=== PATIENT | female | born 1940 | race Caucasian/White ===

== ENCOUNTER → 2017-10-30 | Outpatient (CLI) | payer OTHER ==
[2017-10-30 15:41] LABS: BASO % 0.3 %; BASO ABS # 0.02 K/uL (0-0.2); EOS % 4.1 %; EOS ABS # 0.24 K/uL (0-0.5); HEMATOCRIT 36.8 % (37-47); HEMOGLOBIN 12.3 g/dL (12.0-16.0); IG# 0.01 K/uL (0.00-0.02); LYMPH % 33.5 %; LYMPH ABS # 1.94 K/uL (1.2-3.4); MEAN CELL VOLUME 88.5 fL (80-100); MEAN CORPUSCULAR HEMOGLOBIN 29.6 pg (25-34); MEAN CORPUSCULAR HGB CONC 33.4 g/dl (32-36); MEAN PLATELET VOLUME 10.2 fL (7.4-10.4); MONO % 9.7 %; MONO ABS # 0.56 K/uL (0.11-0.59); NEUT % 52.2 %; NEUT ABS # 3.02 K/uL (1.4-6.5); PLATELET COUNT 187 K/uL (130-400); RED CELL DISTRIBUTION WIDTH CV 13.3 % (11.5-14.5); RED CELL DISTRIBUTION WIDTH SD 43.3 fL (36.4-46.3); WHITE BLOOD COUNT 5.79 K/uL (4.8-10.8)
[2017-10-30 16:00] LABS: ALBUMIN 3.6 gm/dl (3.4-5.0); ALKALINE PHOSPHATASE 76 U/L (45-117); ALT/SGPT 22 U/L (12-78); AST/SGOT 19 U/L (15-37); BLOOD UREA NITROGEN 18 mg/dl (7-18); CALCIUM 9.1 mg/dl (8.5-10.1); CARBON DIOXIDE 28 mmol/L (21-32); CHOLESTEROL 152 mg/dl (0-200); CREATININE 0.95 mg/dl (0.60-1.20); GLUCOSE 90 mg/dl (70-99); LDL CHOLESTEROL CALCULATED 78 mg/dl; POTASSIUM 3.3 mmol/L (3.5-5.1); SODIUM 139 mmol/L (136-145); TOTAL PROTEIN 7.4 gm/dl (6.4-8.2)
== END | disposition home or self-care (01) ==
LOC: C.LAB1850 14:06
PROVIDERS: ATTEND Internal Medicine
DX: I10 Essential (primary) hypertension (principal); K14.9 Disease of tongue, unspecified; M81.0 Age-related osteoporosis without current pathological fracture

== ENCOUNTER 2024-10-21 10:29 | Inpatient (IN) ==
--- NOTE | 2024-10-21 11:10 | Emergency Department Note ---
Impression & Plan Back pain, Ambulatory dysfunction, Bradycardia, Compression fracture of lumbar vertebra ED Provider Note ED Provider Note NAME: EDGAR XIE AGE:84 SEX: Female : 1940 ARRIVES VIA: private vehicle INFORMANT: Patient ED PROVIDER(s): Carly Lux DO CHIEF COMPLAINT: Back pain, unable to walk HPI: This is an 84-year-old female who presents to the emergency department complaining of worsening low back pain and difficulty walking. Patient first began having back pain 2 years ago after an accidental fall. She states she seen many doctors in the interim and has been using [id number] medications and topical products to help with her pain. 2 weeks ago in discussion with her family doctor they wanted to try physical therapy. Since beginning physical therapy her pain has worsened. Her family doctor sent her for repeat x-rays and has referred her to orthopedics for possible steroid injections. They did not prescribe any additional medications. Pain is across the entire low back and radiates down bilateral legs. No recent incontinence, no saddle anesthesia, no recent lower extremity paresthesias. Family at bedside helped to interpret for the patient as Sammarinese is not her primary language. PAST MEDICAL HISTORY:See Below PAST SURGICAL HISTORY:See Below FAMILY HISTORY:See Below SOCIAL HISTORY:See Below HOME MEDICATIONS:See Below ALLERGIES:See Below VITALS:See Below PHYSICAL EXAMINATION: GENERAL: alert, uncomfortable appearing, well nourished, mild distress, non- toxic EYE EXAM: normal conjunctiva, PERRL and EOM's grossly intact OROPHARYNX: no exudate, no erythema, lips, buccal mucosa, and tongue normal and mucous membranes are moist NECK: supple, no nuchal rigidity, no adenopathy, non-tender LUNGS: Clear to auscultation. Normal chest wall mechanics, no w/r/r HEART: no murmurs, S1 normal and S2 normal ABDOMEN: abdomen soft, non-tender, normo-active bowel sounds, no masses, no rebound or guarding. BACK: Back is symmetrical on inspection and there is no deformity, no midline tenderness, no CVA tenderness.Pain with palpation across the lumbar spine b/l. SKIN: no rashes, petechiae, orbruising UPPER EXTREMITIES: upper extremities are grossly normal. FROM, nml pulses b/l. LOWER EXTREMITIES: No pitting edema. FROM, nml pulses b/l. 1/4 bilateral patellar reflexes. Pain with any attempts at straight leg raise bilaterally. Sensation intact bilaterally. NEURO EXAM: Normal sensorium, cranial nerves II-XII grossly intact, normal speech, no facial droop,nogross weakness of arms, no gross weakness of legs. Gross sensation intact. No ataxia. Vital Signs: reviewed and remarkable Differential Diagnosis: lumbar radiculopathy, muscle strain, fracture, cauda equina, mass, disc herniation, UTI, pyelonephritis, ureterolithiasis, AAA, referred pain from other intra-abdominal source, as well as others were considered MEDICAL DECISION MAKING: This is an 84-year-old female brought in by family due to concern for worsening low back pain. He states symptoms worsened 2 weeks ago when she began physical therapy. She does have a remote history of a fall and some mild ongoing back pain but has been ambulatory and relatively well-appearing until 2 weeks ago. She was afebrile and hemodynamically stable on arrival. After discussion and examination at bedside, labs are drawn and sent, IV established, the patient was monitored on telemetry. Patient sent for CT of the lumbar spine given advanced age and concern for pathology. An acute compression fracture was noted. Patient was given IV morphine, IV Tylenol, oral gabapentin, and oral Robaxin with some improvement. She was still not able to stand and ambulate to the bathroom. Given concern for ambulatory dysfunction and persistent pain with increased risk of falls at her advanced age, I discussed with the patient and daughter at bedside further inpatient evaluation and management. I was also concerned for persistent bradycardia. Daughter at bedside notes that she has been told she had a low heart rate before but the daughter is never seen a quite this low. It was also noted by nursing staff that she appeared intermittently irregular. While her EKG appeared to be a sinus bradycardia, I did review several telemetry strips that appeared to be either a slow atrial fibrillation or sinus bradycardia with sinus pauses. Given concern for possible need for cardiology evaluation additionally and further orthopedic/spine evaluation of her back, case was discussed with the hospitalist team for additional evaluation and management. Patient had no acute neurologic findings to suggest cauda equina. I do not suspect epidural abscess or hematoma. Patient's urinalysis and labs did not reveal an acute infectious etiology such as a urinary tract infection/pyelo contributing to her back pain. Consultation(s): 1630: Discussed with Dr. Chacon, [place] hospitalist, for additional evaluation and mgmt. ER Treatment Provided: See below Diagnostics Interpreted By Me: -ECG: sinus bradycardia at 44, left axis deviation, normal intervals, nonspecific ST/T wave changes -Cardiac Monitoring: An order was placed for continuous cardiac monitoring. The monitor shows a rate of 48 with sinus bradycardia rhythm. -Laboratory studies: As stated above and show below. -Imaging studies: Ct lumbar spine: compression fx Triage Nursing Note Reviewed Prior/Outside Records Reviewed - PCP office note from last week reviewed Past Med/Surg History Problem List (Updated 10/21/24 @ 17:55 by Carly Lux, ) Compression fracture of lumbar vertebra (Acute) Bradycardia (Acute) Ambulatory dysfunction (Acute) Back pain (Acute) SI joint arthritis Hip pain, bilateral Impacted cerumen of both ears Tinnitus, right ear Sensorineural hearing loss, bilateral Vitamin D deficiency Hyperglycemia Right leg pain Right leg swelling Decreased hearing of both ears Anxiety GERD (gastroesophageal reflux disease) Chronic UTI Low back pain Hypertension Hyperlipidemia Health care maintenance Medical History Low serum potassium Surgical History No history of previous surgery Family History Denies family history of Ovarian cancer Prostate cancer Myocardial infarction Breast cancer Colorectal cancer Social History Smoking Status: Never smoker Preferred Language: Sammarinese Communication Ability Comment: farsi- daughter translate Communication Tools: Other Visual Impairment: No Limitations Hearing Ability: Normal Feels Safe at Home: Yes Seatbelt Use: always Allergies Allergies Allergy/AdvReac Type Severity Reaction Status Date / Time CT DYE Allergy Unknown HIVES Uncoded 10/14/24 15:05 Home Meds Home Medications Medication Instructions Recorded Confirmed metoprolol tartrate 50 mg tablet 0 mg PO BID 10/21/24 10/21/24 Previous Rx's Medication Instructions Recorded atorvastatin 20 mg tablet 20 mg PO DAILY #90 tabs 10/04/23 hydrochlorothiazide 50 mg tablet 50 mg PO DAILY #90 tabs 10/04/23 omeprazole 40 mg capsule,delayed 40 mg PO DAILY #90 caps 10/04/23 release escitalopram oxalate 10 mg tablet 10 mg PO DAILY #90 tabs 07/04/24 losartan 50 mg tablet 50 mg PO DAILY #90 tabs 07/04/24 metoprolol succinate 25 mg 25 mg PO DAILY #90 tabs 09/10/24 tablet,extended release 24 hr Results & Data (ED) Vital Signs Vital Signs - 24 hr 10/21/24 10:36 10/21/24 11:46 10/21/24 12:19 Temperature 36.6 C Temperature Source Temporal Artery Scan Pulse Rate 67 63 Pulse Rate [Apical] Pulse Rhythm [Apical] Pulse Strength [Apical] Respiratory Rate 18 Respiratory Effort / Characteristics Non-Labored Spontaneous Respiratory Depth Normal Respiratory Pattern Regular Blood Pressure 152/87 H Blood Pressure [Left Arm] Blood Pressure Mean 108 Blood Pressure Mean [Left Arm] Blood Pressure Position [Left Arm] Pulse Oximetry 99 87 L Oxygen Delivery Method Room Air Room Air Nasal Cannula Oxygen Flow Rate 0 Sepsis Recent Fever Within 48 Hours No Sepsis New/Unexplained Change in Mental Status No Sepsis Action Taken by Nursing No Action Required Oxygen Flow Rate - Titration 2 Pulse Oximetry Post Tiitration 94 10/21/24 12:30 10/21/24 15:00 10/21/24 16:28 Temperature Temperature Source Pulse Rate Pulse Rate [Apical] 54 L 49 L 49 L Pulse Rhythm [Apical] Regular Pulse Strength [Apical] Normal Respiratory Rate 20 20 Respiratory Effort / Characteristics Non-Labored Spontaneous Respiratory Depth Normal Respiratory Pattern Regular Blood Pressure Blood Pressure [Left Arm] 161/97 H 143/92 H 141/63 H Blood Pressure Mean Blood Pressure Mean [Left Arm] 118 109 89 Blood Pressure Position [Left Arm] Lying Lying Pulse Oximetry 98 100 95 Oxygen Delivery Method Nasal Cannula Room Air Oxygen Flow Rate 2 Sepsis Recent Fever Within 48 Hours Sepsis New/Unexplained Change in Mental Status Sepsis Action Taken by Nursing Oxygen Flow Rate - Titration Pulse Oximetry Post Tiitration Laboratory Data 10/21/24 11:11 10/21/24 11:11 Lab Results 10/21/24 Range/Units 11:11 WBC 5.88 (4.8-10.8) K/ul RBC 4.32 (4.20-5.40) M/uL Hgb 13.0 (12.0-16.0) g/dl Hct 37.1 (37.0-47.0) % MCV 85.9 (80.0-100.0) fL MCH 30.1 (25.0-34.0) pg MCHC 35.0 (32.0-36.0) g/dL RDW Std Deviation 39.8 (36.4-46.3) fL RDW Coeff of Abelardo 12.7 (11.5-14.5) % Plt Count 265 (130-400) K/uL MPV 9.7 (9.4-12.4) fL Immature Gran % (Auto) 0.3 % Neut % (Auto) 58.7 % Lymph % (Auto) 30.8 % Pettis % (Auto) 7.3 % Eos % (Auto) 2.4 % Baso % (Auto) 0.5 % Neut # (Auto) 3.45 (1.40-6.50) K/uL Lymph # (Auto) 1.81 (1.20-3.40) K/uL Pettis # (Auto) 0.43 (0.11-0.59) K/uL Eos # (Auto) 0.14 (0.00-0.50) K/uL Baso # (Auto) 0.03 (0.00-0.20) K/uL Immature Gran # (Auto) 0.02 (0.01-0.20) K/uL PT 11.0 (9.0-12.0) Seconds INR 1.0 (0.9-1.1) Sodium 138 (136-145) mmol/L Potassium 3.6 (3.5-5.1) mmol/L Chloride 100 (98-107) mmol/L Carbon Dioxide 28 (21-32) mmol/L Anion Gap 10 (3-11) BUN 18 (6-23) mg/dl Creatinine 1.07 (0.6-1.2) mg/dl Est Cr Clr Drug Dosing 38.4 ml/min eGFR 50.59 BUN/Creatinine Ratio 16.8 (10-20) Glucose 101 H (70-99(Fasting)) mg/dl Calcium 10.2 (8.6-10.3) mg/dl Magnesium 1.4 L (1.7-2.4) mg/dl Total Bilirubin 0.7 (0.2-1.0) mg/dl AST 20 (13-39) U/L ALT 15 (7-52) U/L Alkaline Phosphatase 136 H (34-104) U/L Total Protein 7.5 (6.0-8.3) gm/dl Albumin 4.2 (3.4-5.0) gm/dl Globulin 3.3 (2.5-4.0) gm/dl Albumin/Globulin Ratio 1.3 (0.9-2) Lipase 53 (11-82) U/L Urine Color Yellow Urine Appearance Clear (Clear) Urine pH 8.5 H (4.5-7.5) Ur Specific [place] 1.015 (1.000-1.030) Urine Protein Negative (Negative) Urine Glucose (UA) Negative (Negative) Urine Ketones Negative (Negative) Urine Blood Trace-intact H (Negative) Urine Nitrite Negative (Negative) Urine Bilirubin Negative (Negative) Urine Urobilinogen Negative (Negative) Ur Leukocyte Esterase Negative (Negative) Urine RBC 0-2 (0-2) /hpf Urine WBC 0-5 (0-5) /hpf Ur Epithelial Cells 0-2 (0-2) /hpf Urine Bacteria None Seen (None Seen) Urine Comment Administered Medications Sodium Chloride (Nss) 1,000 mls @ 125 mls/hr IV .Q8H LAVERNE Stop: 10/24/24 11:44 Last Admin: 10/21/24 11:34 Dose: 125 mls/hr Documented By: SHOBHA Discontinued Medications Gabapentin (Gabapentin 100 Mg Cap) 100 mg PO NOW STA Stop: 10/21/24 13:46 Last Admin: 10/21/24 13:57 Dose: 100 mg Documented By: BRANT Acetaminophen (Ofirmev) 1,000 mg in 100 mls @ 400 mls/hr IV NOW STA Stop: 10/21/24 11:18 Last Infusion: 10/21/24 12:29 Dose: Infused Documented By: Admin: 10/21/24 11:27 Dose: 400 mls/hr Documented By: SHOBHA Magnesium Sulfate/Dextrose (Magnesium Sulfate / D5w) 1 gm in 100 mls @ 100 mls/hr IV Q1H LAVERNE Stop: 10/21/24 14:04 Last Infusion: 10/21/24 14:15 Dose: Infused Documented By: Admin: 10/21/24 13:15 Dose: 100 mls/hr Documented By: Infusion: 10/21/24 13:09 Dose: Infused Documented By: Admin: 10/21/24 12:09 Dose: 100 mls/hr Documented By: SHOBHA Methocarbamol (Methocarbamol 500 Mg Tablet) 500 mg PO NOW STA Stop: 10/21/24 11:05 Last Admin: 10/21/24 11:35 Dose: 500 mg Documented By: SHOBHA Morphine Sulfate (Morphine Sulfate 4 Mg/Ml 1 Ml Carp\Vial) 4 mg IV NOW STA Stop: 10/21/24 11:05 Last Admin: 10/21/24 11:27 Dose: 4 mg Documented By: SHOBHA Ondansetron HCl (Ondansetron Inj 2 Mg/Ml 2 Ml Vial) 4 mg IV NOW STA Stop: 10/21/24 11:05 Last Admin: 10/21/24 11:27 Dose: 4 mg Documented By: SHOBHA Imaging Data Radiologist's Impression: Lumbar Spine CT 10/21/24 11:04 CT SCAN OF THE LUMBAR SPINE WITHOUT IV CONTRAST CLINICAL HISTORY: Low back pain COMPARISON STUDY: No priors TECHNIQUE: CT scan of the lumbar spine is performed from the lower thoracic spine to sacrum. Images are reviewed in the axial, sagittal, and coronal planes. IV contrast was not administered for this examination. A dose lowering technique was utilized adhering to the principles of ALARA. CT DOSE: 934.66 mGy.cm FINDINGS: The skeletal structures are osteopenic. There is an acute appearing superior endplate compression fracture of L3 with mild loss of height. Paravertebral edema seen at this level. No retropulsion of fragments is identified. No additional acute fracture is suspected. Vertebral body height is otherwise maintained. 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 Alignment is otherwise preserved. The transverse and spinous processes appear intact. No lytic or blastic lesion is seen. There are Schmorl's nodes within the inferior end plates of T12, L1, and L3. Anterior and lateral marginal osteophytes are seen throughout. There is moderate disc space narrowing at L5-S1. Only mild disc space narrowing is seen at the remaining lumbar levels. Posterior disc osteophyte complexes are seen at several levels. There is at least moderate central canal stenosis at L2-L3 and L3-L4. Imaged portions of the sacrum and bony pelvis appear intact. There is fatty atrophy of the paraspinous musculature. Moderate atherosclerotic calcification is noted in the abdominal aorta. No retroperitoneal lymphadenopathy is seen. IMPRESSION: 1. Acute appearing superior endplate compression fracture of L3 with mild loss of height as detailed above. No retropulsion of fragments is seen. 2. No additional findings are suspicious for acute fracture. 3. Osteopenia and spondylotic change as above. ACT 112: Negative or not required by law. Electronically signed by: Louie Phillips M.D. 10/21/2024 12:07 PM Discharge Plan Visit Data Chief Complaint: Back Injury/Pain Stated Complaint: SEVERE LOWER BACK PAIN ED Provider: Carly Lux Discharge Problem: Back pain, Ambulatory dysfunction, Bradycardia, Compression fracture of lumbar vertebra Patient Disposition: Being Evaluated by Hospitalist Condition: Fair Forms Stand Alone Forms: My [facility] Prescriptions Prescriptions: No Action atorvastatin 20 mg tablet 20 mg PO DAILY Qty: 90 3RF hydrochlorothiazide 50 mg tablet 50 mg PO DAILY Qty: 90 3RF omeprazole 40 mg capsule,delayed release(DR/EC) 40 mg PO DAILY Qty: 90 3RF escitalopram oxalate 10 mg tablet 10 mg PO DAILY Qty: 90 3RF losartan 50 mg tablet 50 mg PO DAILY Qty: 90 1RF metoprolol succinate 25 mg tablet extended release 24 hr 25 mg PO DAILY Qty: 90 3RF metoprolol tartrate 50 mg tablet 0 mg PO BID Patient Comments: 10/21-last filled 02/06/24 90 day supply #180 Referrals Referrals: Loly Levi MD [Primary Care Provider] -
[2024-10-21] MEDS: ONDANSETRON INJ 2 MG/ML 2 ML VIAL IV STA (11:27)
[2024-10-21] MEDS: MoRPHine SULFATE 4 MG/ML 1 ML CARP\\VIAL IV STA (11:27)
[2024-10-21] MEDS: ACETAMINOPHEN 1,000 MG/100 ML VIAL IV STA (11:27)
[2024-10-21] MEDS: SODIUM CHLORIDE 0.9% 1,000 ML IV SCH (11:34)
[2024-10-21] MEDS: METHOCARBAMOL 500 MG TABLET PO STA (11:35)
[2024-10-21 11:38] LABS: Appearance Urine Clear (Clear); Glucose Urine UA Negative (Negative)
[2024-10-21 11:44] LABS: Hematocrit (blood only) 37.1 % (37.0-47.0); Hemoglobin 13.0 g/dl (12.0-16.0); Immature Granulocytes # (auto) 0.02 K/uL (0.01-0.20); Immature Granulocytes % (auto) 0.3 %; Mean Corpuscular Hemoglobin 30.1 pg (25.0-34.0); Mean Corpuscular Volume 85.9 fL (80.0-100.0); Platelet Count 265 K/uL (130-400); RDW Standard Deviation 39.8 fL (36.4-46.3); Red Blood Count 4.32 M/uL (4.20-5.40); White Blood Count 5.88 K/ul (4.8-10.8)
[2024-10-21 11:52] LABS: Epithelial Cell Urine 0-2 /hpf (0-2)
[2024-10-21 12:03] LABS: Alanine Aminotransferase 15.0 U/L (7-52); Albumin Globulin Ratio 1.3 (0.9-2); Alkaline Phosphatase 136.0 U/L (34-104); Anion Gap 10.0 (3-11); Bilirubin,Total 0.7 mg/dl (0.2-1.0); Blood Urea Nitrogen 18.0 mg/dl (6-23); Calcium 10.2 mg/dl (8.6-10.3); Carbon Dioxide 28.0 mmol/L (21-32); Chloride 100.0 mmol/L (98-107); Creatinine Clr Calc Pharmacy 38.4 ml/min; Globulin 3.3 gm/dl (2.5-4.0); Glucose 101.0 mg/dl (70-99(Fasting)); Lipase 53.0 U/L (11-82); Magnesium 1.4 mg/dl (1.7-2.4); Potassium 3.6 mmol/L (3.5-5.1); Sodium 138.0 mmol/L (136-145); Total Protein 7.5 gm/dl (6.0-8.3)
--- NOTE | 2024-10-21 12:08 | CT Scan Report ---
CT SCAN OF THE LUMBAR SPINE WITHOUT IV CONTRAST CLINICAL HISTORY: Low back pain COMPARISON STUDY: No priors TECHNIQUE: CT scan of the lumbar spine is performed from the lower thoracic spine to sacrum. Images are reviewed in the axial, sagittal, and coronal planes. IV contrast was not administered for this ex amination. A dose lowering technique was utilized adhering to the principles of ALARA. CT DOSE: 934.66 mGy.cm FINDINGS: The skeletal structures are osteopenic. There is an acute appearing superior endplate compr ession fracture of L3 with mild loss of height. Paravertebral edema seen at this level. No retropulsi on of fragments is identified. No additional acute fracture is suspected. Vertebral body height is ot herwise maintained. 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 Al ignment is otherwise preserved. The transverse and spinous processes appear intact. No lytic or blast ic lesion is seen. There are Schmorl's nodes within the inferior end plates of T12, L1, and L3. Anter ior and lateral marginal osteophytes are seen throughout. There is moderate disc space narrowing at L 5-S1. Only mild disc space narrowing is seen at the remaining lumbar levels. Posterior disc osteophyt e complexes are seen at several levels. There is at least moderate central canal stenosis at L2-L3 an d L3-L4. Imaged portions of the sacrum and bony pelvis appear intact. There is fatty atrophy of the p araspinous musculature. Moderate atherosclerotic calcification is noted in the abdominal aorta. No re troperitoneal lymphadenopathy is seen. IMPRESSION: 1. Acute appearing superior endplate compression fracture of L3 with mild loss of height as detailed above. No retropulsion of fragments is seen. 2. No additional findings are suspicious for acute fracture. 3. Osteopenia and spondylotic change as above. ACT 112: Negative or not required by law. Electronically signed by: Louie Phillips M.D. 10/21/2024 12:07 PM
[2024-10-21] MEDS: MAGNESIUM SULFATE / D5W 1 GM/100 ML BAG IV SCH (12:09)
[2024-10-21 12:15] LABS: INR 1.0 (0.9-1.1); Prothrombin Time 11.0 Seconds (9.0-12.0)
[2024-10-21] MEDS: GABAPENTIN 100 MG CAP PO STA (13:57)
[2024-10-21] MEDS ORDERED: MoRPHine SULFATE 4 MG/ML 1 ML CARP\\VIAL IV PRN (16:07)
[2024-10-21] MEDS ORDERED: METHOCARBAMOL 500 MG TABLET PO PRN (16:07)
[2024-10-21] MEDS ORDERED: ONDANSETRON INJ 2 MG/ML 2 ML VIAL IV PRN (16:11)
--- NOTE | 2024-10-21 16:39 | History & Physical Report ---
Date of Service October 21, 2024 Assessment & Plan (1) Back pain: Plan: -L3 compression fx on CT -pain control with morphine -neurontin, robaxin -MRI L-spine -ortho-spine consulted -PT/OT evaluation (2) Hypertension: Plan: -losartan -HCTZ -metoprolol (3) Hyperlipidemia: Plan: -atorvastatin (4) Anxiety: Plan: -lexapro Plan Heparin SQ for DVT px History of Present Illness Chief Complaint: Lower back pain Primary Care Provider: Loly Levi MD Pt is an 84 y/o female from [place] with pmh of HTN, HLD, anxiety, who presents worsening lower back pain with pain that radiates down her legs and difficulty walking. Pt started having back pain 2 years ago after a fall. She was placed in PT by her primary care doctor 2 weeks ago and her symptoms have progressed. She was sent in by her PMD for further imaging and orthopedics evaluation. Pt has no urinary incontinence or paresthesias. She had CT L spine which showed L3 compression fracture. Pt was given morphine, gabapentin and Robaxin. Allergies Allergy/AdvReac Type Severity Reaction Status Date / Time CT DYE Allergy Unknown HIVES Uncoded 10/14/24 15:05 Home Medications Medication Instructions Recorded Confirmed Type atorvastatin 20 mg tablet 20 mg PO DAILY #90 tabs 10/04/23 10/21/24 Rx hydrochlorothiazide 50 mg tablet 50 mg PO DAILY #90 tabs 10/04/23 10/21/24 Rx omeprazole 40 mg capsule,delayed 40 mg PO DAILY #90 caps 10/04/23 10/21/24 Rx release escitalopram oxalate 10 mg tablet 10 mg PO DAILY #90 tabs 07/04/24 10/21/24 Rx losartan 50 mg tablet 50 mg PO DAILY #90 tabs 07/04/24 10/21/24 Rx metoprolol succinate 25 mg 25 mg PO DAILY #90 tabs 09/10/24 10/21/24 Rx tablet,extended release 24 hr metoprolol tartrate 50 mg tablet 0 mg PO BID 10/21/24 10/21/24 History Past Med/Surg History Problem List (Updated 10/21/24 @ 16:30 by Carly Lux DO) Bradycardia (Acute) Ambulatory dysfunction (Acute) Back pain (Acute) SI joint arthritis Hip pain, bilateral Impacted cerumen of both ears Tinnitus, right ear Sensorineural hearing loss, bilateral Vitamin D deficiency Hyperglycemia Right leg pain Right leg swelling Decreased hearing of both ears Anxiety GERD (gastroesophageal reflux disease) Chronic UTI Low back pain Hypertension Hyperlipidemia Health care maintenance Medical History Low serum potassium Surgical History No history of previous surgery Family History Denies family history of Ovarian cancer Prostate cancer Myocardial infarction Breast cancer Colorectal cancer Social History Smoking Status: Never smoker Preferred Language: Romansh Communication Ability Comment: farsi- daughter translate Communication Tools: Other Visual Impairment: No Limitations Hearing Ability: Normal Feels Safe at Home: Yes Seatbelt Use: always Review of Systems Review of Systems: CONST: Negative for fever, body aches and chills. HENT: Negative for neck pain/stiffness, headache, congestion, sore throat, swelling. EYES: Negative for discharge/pain or vision changes. RESP: Negative for cough/hemoptysis and shortness of breath. CV: Negative chest pain, difficulty breathing, palpitations. ABD: Negative pain, nausea, vomiting. : Negative increase frequency, dysuria, blood in urine or stool. MUSC: Lumbar back pain SKIN: Negative rash, lesions/sores. NEURO: Negative headache, dizziness, weakness. Physical Exam Physical Exam: GENERAL APPEARANCE NAD, activity normal for age, well developed/ well nourished, no cyanosis, pallor, or diaphoresis. EYES lids/conjunctiva normal. EARS/NOSE/THROAT Mucous membranes moist, nares normal, lips/teeth normal uvula midline without oral pharyngeal erythema, exudat e or swelling TMs normal bilaterally. No lymphangitis/lymphedema. HEAD/NECK normocephalic atraumatic, no facial trauma, neck is supple. RESPIRATORY respiratory effort normal, speaks in full sentences, no tripod position, no accessory muscle use. Lungs clear to auscultation without rhonchi, wheezes, rales CARDIAC Regular rate and rhythm, no edema. ABDOMINAL Soft, ND/NT. No evidence of fluid wave. No pulsatile masses on exam, rebound tenderness, Jackson sign or pain over Mcburney's point. MUSCLES/EXTREMITIES Lumbar tenderness SKIN Warm, pink and dry. No rashes, dermatoses, petechiae or lesions. NEUROLOGICAL Speech is clear and appropriate. Normal level of consciousness. Gait and coordination are normal. 5/5 strength in all extremities. PSYCH Normal mood and affect. Judgement/competence is appropriate Results & Data Results & Data Vital Signs (Past 12 Hours) Vital Signs Temp Pulse Pulse Resp BP BP Pulse Ox 10/21/24 16:28 49 L 20 141/63 H 95 10/21/24 15:00 49 L 143/92 H 100 10/21/24 12:30 54 L 20 161/97 H 98 10/21/24 12:19 87 L 10/21/24 11:46 63 10/21/24 10:36 36.6 C 67 18 152/87 H 99 O2 Del Method O2 Flow Rate 10/21/24 16:28 10/21/24 15:00 Room Air 10/21/24 12:30 Nasal Cannula 2 10/21/24 12:19 Room Air, Nasal Cannula 0 10/21/24 11:46 10/21/24 10:36 Room Air PG Care Time/CCT Total # of Minutes Spent Total Time Spent with Patient: Total time spent is greater than 50% in coordination of care (as documented) at patient's floor/unit and/or counseling patient: Coding Level of Care Code 95810 INT INP/OBS CARE 2/55MIN Diagnoses Back pain M54.9 Hypertension I10 Hyperlipidemia E78.5 Anxiety F41.9
--- NOTE | 2024-10-21 20:19 | Magnetic Resonance Report ---
MRI of the lumbar spine without contrast Technique: Noncontrast axial images of the lumbar spine. Multiplanar multisequence MRI images of the lumbar spine No comparison Findings: Subtle superior endplate compression deformity of L3 resulting in 10% vertebral body height loss. There is slight retropulsion of the fracture fragment. This is superimposed upon significant posterior disc bulge and facet ligamentous hypertrophic changes at L2-L3 resulting in moderate canal and severe bilateral foraminal narrowing at this level The cord terminates normally at L1 Facet and ligamentous hypertrophic changes superimposed upon posterior disc bulge at L3-L4 resulting in moderate bilateral foraminal narrowing Grade 1 anterolisthesis of L5 on S1 resulting in unroofing of the disc posteriorly with severe bilateral foraminal narrowing Impression: Subtle superior endplate compression deformity at L3 resulting in 10% vertebral body height loss. There is slight retropulsion of the fracture fragment and there is severe canal stenosis secondary to the retropulsed fracture fragment and superimposed degenerative changes at L2-L3. Severe bilateral foraminal narrowing is also noted at this level Degenerative changes at L3-L4 and L5-S1 as described above Electronically signed by Darwin Khan 10-21-2024 8:19 PM
[2024-10-21] MEDS: HEPARIN SOD 5,000 UNIT/0.5 ML VIAL SQ SCH (21:53)
[2024-10-21] MEDS: GABAPENTIN 100 MG CAP PO SCH (21:53)
[2024-10-21] MEDS: LOSARTAN POTASSIUM 50 MG TAB PO SCH (22:34)
[2024-10-21] MEDS: ESCITALOPRAM OXALATE 10 MG TAB PO SCH (22:35)
[2024-10-21] MEDS: ATORVASTATIN 20 MG TAB PO SCH (22:35)
[2024-10-22] MEDS: ACETAMINOPHEN 325 MG TAB PO PRN (04:09)
[2024-10-22 06:33] LABS: Hematocrit (blood only) 30.3 % (37.0-47.0); Hemoglobin 10.3 g/dl (12.0-16.0); Mean Corpuscular Hemoglobin 30.3 pg (25.0-34.0); Mean Corpuscular Volume 89.1 fL (80.0-100.0); Platelet Count 202 K/uL (130-400); RDW Standard Deviation 43.3 fL (36.4-46.3); Red Blood Count 3.40 M/uL (4.20-5.40); White Blood Count 5.55 K/ul (4.8-10.8)
[2024-10-22 06:48] LABS: Anion Gap 6.0 (3-11); Blood Urea Nitrogen 18.0 mg/dl (6-23); Calcium 8.3 mg/dl (8.6-10.3); Carbon Dioxide 26.0 mmol/L (21-32); Chloride 106.0 mmol/L (98-107); Creatinine Clr Calc Pharmacy 30.2 ml/min; Glucose 94.0 mg/dl (70-99(Fasting)); Potassium 3.4 mmol/L (3.5-5.1); Sodium 138.0 mmol/L (136-145)
--- NOTE | 2024-10-22 08:53 | Hospitalist Progress Note ---
Date of Service October 22, 2024 Assessment & Plan (1) Back pain: Plan: -L3 compression fx on CT -pain control with morphine and tramadol -neurontin, robaxin -MRI L-spine -ortho-spine consulted -PT/OT evaluation (2) Hypertension: Plan: -losartan -HCTZ -metoprolol (3) Hyperlipidemia: Plan: -atorvastatin (4) Anxiety: Plan: -lexapro Plan Heparin SQ for DVT px Admission and Anticipated Discharge Date Admission Date: October 21, 2024 Subjective Pt appears to have improved symptoms of back pain. Review of Systems Review of Systems: CONST: Negative for fever, body aches and chills. HENT: Negative for neck pain/stiffness, headache, congestion, sore throat, swelling. EYES: Negative for discharge/pain or vision changes. RESP: Negative for cough/hemoptysis and shortness of breath. CV: Negative chest pain, difficulty breathing, palpitations. ABD: Negative pain, nausea, vomiting. : Negative increase frequency, dysuria, blood in urine or stool. MUSC: Lumbar back pain SKIN: Negative rash, lesions/sores. NEURO: Negative headache, dizziness, weakness. Physical Exam Physical Exam: GENERAL APPEARANCE NAD, activity normal for age, well developed/ well nourished, no cyanosis, pallor, or diaphoresis. EYES lids/conjunctiva normal. EARS/NOSE/THROAT Mucous membranes moist, nares normal, lips/teeth normal uvula midline without oral pharyngeal erythema, exudate or swelling TMs normal bilaterally. No lymphangitis/lymphedema. HEAD/NECK normocephalic atraumatic, no facial trauma, neck is supple. RESPIRATORY respiratory effort normal, speaks in full sentences, no tripod position, no accessory muscle use. Lungs clear to auscultation without rhonchi, wheezes, rales CARDIAC Regular rate and rhythm, no edema. ABDOMINAL Soft, ND/NT. No evidence of fluid wave. No pulsatile masses on exam, rebound tenderness, Jackson sign or pain over Mcburney's point. MUSCLES/EXTREMITIES Lumbar tenderness SKIN Warm, pink and dry. No rashes, dermatoses, petechiae or lesions. NEUROLOGICAL Speech is clear and appropriate. Normal level of consciousness. Gait and coordination are normal. 5/5 strength in all extremities. PSYCH Normal mood and affect. Judgement/competence is appropriate Results & Data Results & Data Vital Signs (Past 12 Hours) Vital Signs Temp Pulse Pulse Resp BP BP Pulse Ox 10/22/24 07:10 36.4 C L 54 L 16 125/76 10/22/24 00:16 60 110/70 10/21/24 23:01 36.6 C 62 18 99/64 L 95 O2 Del Method 10/22/24 07:10 10/22/24 00:16 10/21/24 23:01 Room Air PG Care Time/CCT Total # of Minutes Spent Total Time Spent with Patient: Total time spent is greater than 50% in coordination of care (as documented) at patient's floor/unit and/or counseling patient: Coding Level of Care Code 25036 SUB INP/OBS CARE 2/35MIN Diagnoses Back pain M54.9 Hypertension I10 Hyperlipidemia E78.5 Anxiety F41.9
[2024-10-22] MEDS ORDERED: LOSARTAN POTASSIUM 50 MG TAB PO SCH (09:00)
[2024-10-22] MEDS ORDERED: ATORVASTATIN 20 MG TAB PO SCH (09:00)
[2024-10-22] MEDS ORDERED: ESCITALOPRAM OXALATE 10 MG TAB PO SCH (09:00)
[2024-10-22] MEDS: METOPROLOL SUCC 25MG EXT REL TAB PO SCH (10:02)
[2024-10-22] MEDS: hydroCHLOROthiazide 25 MG TAB PO SCH (10:02)
--- NOTE | 2024-10-22 11:05 | Orthopedic Consultation ---
Date of Service October 22, 2024 Assessment & Plan (1) Compression fracture of lumbar vertebra: * Case/imaging reviewed and discussed with Dr Beckwith * Recommend conservative management of L3 compression fracture * Per report, no recent trauma and fracture was not present on imaging after last known fall approximately 2 years ago * LSO brace ordered * Activity as tolerated * Pain improved on Neurontin and Robaxin. * Consider steroid taper if not improved * Discussed possible surgical intervention, however this is not urgent given her exam findings * Disposition: TBD * Daily treatment: Physical Therapy/ Occupational Therapy per protocol * Weight bearing status: WBAT * Pain control * Remainder care per primary team * No objection to discharge with outpatient follow-up as symptoms improved and she clears PT/OT History of Present Illness Reason for Consultation: L3 compression fx Requesting Physician: . Attending Physician: Bay Chacon MD .Patient is a 84 y/o female with low back pain. 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 PMH including anxiety, GERD, HTN, hyperlipidemia, chronic back pain. Presents to hospital with acute on chronic low back pain. Per patient's daughter, patient has had low back pain for approximately 2 years after a fall, imaging at that time was negative for fracture. Recently started PT for generalized conditioning which has increased her low back pain, became severe yesterday prompting presentation to ED for further evaluation. Current workup including CT and MRI lumbar spine demonstrating L3 compression fracture with retropulsion and canal stenosis secondary to retropulsed fragment and degenerative changes. Admitted to hospital medicine team for pain control and ambulatory dysfunction. Orthopedics consulted for management recommendations. At time of exam patient sitting on edge of bed about to work with PT, no acute distress. Indicates pain centralized to the low back. Actively moves both lower extremities without limitation. Per report has been ambulating throughout the room without signif icant difficulty throughout the morning. Pain is improved overnight with medication. Denies current tingling, numbness, weakness of the lower extremities, just pain with motion. Allergies Allergy/AdvReac Type Severity Reaction Status Date / Time CT DYE Allergy Unknown HIVES Uncoded 10/14/24 15:05 Home Medications Medication Instructions Recorded Confirmed Type atorvastatin 20 mg tablet 20 mg PO DAILY #90 tabs 10/04/23 10/21/24 Rx hydrochlorothiazide 50 mg tablet 50 mg PO DAILY #90 tabs 10/04/23 10/21/24 Rx omeprazole 40 mg capsule,delayed 40 mg PO DAILY #90 caps 10/04/23 10/21/24 Rx release escitalopram oxalate 10 mg tablet 10 mg PO DAILY #90 tabs 07/04/24 10/21/24 Rx losartan 50 mg tablet 50 mg PO DAILY #90 tabs 07/04/24 10/21/24 Rx metoprolol succinate 25 mg 25 mg PO DAILY #90 tabs 09/10/24 10/21/24 Rx tablet,extended release 24 hr metoprolol tartrate 50 mg tablet 0 mg PO BID 10/21/24 10/21/24 History Past Med/Surg History Problem List (Updated 10/22/24 @ 14:51 by Louie Beckwith MD) Compression fracture of lumbar vertebra (Acute) Bradycardia (Acute) Ambulatory dysfunction (Acute) Back pain (Acute) SI joint arthritis Hip pain, bilateral Impacted cerumen of both ears Tinnitus, right ear Sensorineural hearing loss, bilateral Vitamin D deficiency Hyperglycemia Right leg pain Right leg swelling Decreased hearing of both ears Anxiety GERD (gastroesophageal reflux disease) Chronic UTI Low back pain Hypertension Hyperlipidemia Health care maintenance Medical History Low serum potassium Surgical History No history of previous surgery Family History Denies family history of Ovarian cancer Prostate cancer Myocardial infarction Breast cancer Colorectal cancer Social History Smoking Status: Never smoker Second Hand Exposure: No; Do You Dip or Chew Tobacco: No; Hx Alcohol Use: No Hx Substance Use: No Preferred Language: [place]ic Communication Ability: Effective Communication Ability Comment: farsi- daughter translate Communication Tools: IPad Visual Impairment: No Limitations Hearing Ability: Normal 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 Physical Exam * General: Alert and oriented, no acute distress * Constitutional: well-developed, well-nourished. * Respiratory: Normal respiratory effort, no distress * Gastrointestinal: No tenderness to palpation, no rigidity or guarding. * Skin: No rash or lesion. * Neurologic: Grossly normal * Musculoskeletal: Lumbar spine region without obvious deformity or overlying skin changes. Minimal tenderness of midline lumbar region and paraspinals, otherwise no tenderness b/l buttock or LE. Lumbar flexion/extension and rotation ROM with minimal pain. AROM b/l hip flexion, knee flexion/extension, ankle flexion/extension intact. Strength 5/5 bilaterally. Sensation intact plantar/dorsal foot. Brisk capillary refill. Results & Data Results & Data Laboratory Results . Diagnostic Findings . Lumbar Spine CT 10/21/24 11:04 CT SCAN OF THE LUMBAR SPINE WITHOUT IV CONTRAST CLINICAL HISTORY: Low back pain COMPARISON STUDY: No priors TECHNIQUE: CT scan of the lumbar spine is performed from the lower thoracic spine to sacrum. Images are reviewed in the axial, sagittal, and coronal planes. IV contrast was not administered for this examination. A dose lowering technique was utilized adhering to the principles of ALARA. CT DOSE: 934.66 mGy.cm FINDINGS: The skeletal structures are osteopenic. There is an acute appearing superior endplate compression fracture of L3 with mild loss of height. Paravertebral edema seen at this level. No retropulsion of fragments is identified. No additional acute fracture is suspected. Vertebral body height is otherwise maintained. 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 Alignment is otherwise preserved. The transverse and spinous processes appear intact. No lytic or blastic lesion is seen. There are Schmorl's nodes within the inferior end plates of T12, L1, and L3. Anterior and lateral marginal osteophytes are seen throughout. There is moderate disc space narrowing at L5-S1. Only mild disc space narrowing is seen at the remaining lumbar levels. Posterior disc osteophyte complexes are seen at several levels. There is at least moderate central canal stenosis at L2-L3 and L3-L4. Imaged portions of the sacrum and bony pelvis appear intact. There is fatty atrophy of the paraspinous musculature. Moderate atherosclerotic calcification is noted in the abdominal aorta. No retroperitoneal lymphadenopathy is seen. IMPRESSION: 1. Acute appearing superior endplate compression fracture of L3 with mild loss of height as detailed above. No retropulsion of fragments is seen. 2. No additional findings are suspicious for acute fracture. 3. Osteopenia and spondylotic change as above. ACT 112: Negative or not required by law. Electronically signed by: Louie Phillips M.D. 10/21/2024 12:07 PM Lumbar Spine MRI 10/21/24 16:10 MRI of the lumbar spine without contrast Technique: Noncontrast axial images of the lumbar spine. Multiplanar multisequence MRI images of the lumbar spine No comparison Findings: Subtle superior endplate compression deformity of L3 resulting in 10% vertebral body height loss. There is slight retropulsion of the fracture fragment. This is superimposed upon significant posterior disc bulge and facet ligamentous hypertrophic changes at L2-L3 resulting in moderate canal and severe bilateral foraminal narrowing at this level The cord terminates normally at L1 Facet and ligamentous hypertrophic changes superimposed upon posterior disc bulge at L3-L4 resulting in moderate bilateral foraminal narrowing Grade 1 anterolisthesis of L5 on S1 resulting in unroofing of the disc posteriorly with severe bilateral foraminal narrowing Impression: Subtle superior endplate compression deformity at L3 resulting in 10% vertebral body height loss. There is slight retropulsion of the fracture fragment and there is severe canal stenosis secondary to the retropulsed fracture fragment and superimposed degenerative changes at L2-L3. Severe bilateral foraminal narrowing is also noted at this level Degenerative changes at L3-L4 and L5-S1 as described above Electronically signed by Darwin Khan 10-21-2024 8:19 PM PG Care Time/CCT Total # of Minutes Spent Total Time Spent with Patient: Total time spent is greater than 50% in coordination of care (as documented) at patient's floor/unit and/or counseling patient: [place] [address] IN/OBS CONSULT LVL 4,60M Patient Type New Medical Decision Making Moderate Complexity Diagnoses Compression fracture of L3 vertebra, initial encounter S32.030A Encounter type: initial encounter Lumbar vertebra fracture level: L3 (1) Compression fracture of lumbar vertebra Encounter type: initial encounter Lumbar vertebra fracture level: L3 Q ualified Code(s): S32.030A - Wedge compression fracture of third lumbar vertebra, initial encounter for closed fracture
[2024-10-22 23:01] VITALS: RESP 18
[2024-10-23 07:32] VITALS: TEMP 97.7; O2SAT 92
[2024-10-23 09:03] VITALS: BP 149/84; PULSE 64
--- NOTE | 2024-10-23 09:44 | Orthopedic Progress Note ---
Date of Service October 23, 2024 Assessment & Plan (1) Compression fracture of lumbar vertebra: * Continue Current Treatment * Disposition: TBD, anticipate home * Daily treatment: Physical Therapy/ Occupational Therapy per protocol * Weight bearing status: WBAT * LSO brace fitted, to wear from comfort * Pain control * Office/hospital f/u 2 weeks for progress check * Remainder care per primary team * Stable for discharge from ortho standpoint, further planning per primary team Subjective .Active Problems: L3 compression fx 84 y/o female with L3 compression fx. Care plan discussed with daughter Sadaf via phone. Doing well overall, pain managed and improved function. Denies fever/chills, chest pain/SOB, nausea/vomiting. Otherwise no complaints. Fitted for LSO yesterday and patient voices improved comfort while wearing brace. Review of Systems All systems reviewed & are unremarkable except as noted in HPI & below. Physical Exam .General: Alert and oriented, no acute distress * Constitutional: well-developed, well-nourished. * Respiratory: Normal respiratory effort, no distress * Gastrointestinal: No tenderness to palpation, no rigidity or guarding. * Skin: No rash or lesion. * Neurologic: Grossly normal * Musculoskeletal: Lumbar spine region without obvious deformity or overlying skin changes. Minimal tenderness of midline lumbar region and paraspinals, otherwise no tenderness b/l buttock or LE. Lumbar flexion/extension and rotation ROM with minimal pain. AROM b/l hip flexion, knee flexion/extension, ankle flexion/extension intact. Strength 5/5 bilaterally. Sensation intact plantar/dorsal foot. Brisk capillary refill. Results & Data Results & Data Laboratory Results . Diagnostic Findings . PG Care Time/CCT Total # of Minutes Spent Total Time Spent with Patient: Total time spent is greater than 50% in coordination of care (as documented) at patient's floor/unit and/or counseling patient: Coding Level of Care Code 13527 SUB INP/OBS CARE 1/25MIN History Problem Focused Exam Problem Focused Medical Decision Making Straight Forward Diagnoses Compression fracture of L3 vertebra, initial encounter S32.030A Encounter type: initial encounter Lumbar vertebra fracture level: L3 (1) Compression fracture of lumbar vertebra Encounter type: initial encounter Lumbar vertebra fracture level: L3 Qualified Code(s): S32.030A - Wedge compression fracture of third lumbar vertebra, initial encounter for closed fracture
--- NOTE | 2024-10-23 12:49 | Discharge Summary ---
"Discharge Summary Date of Service October 23, 2024 Principal Dx & Hospital Course #1 = Principal Diagnosis (1) Back pain: -L3 compression fx on CT -pain control with morphine and tramadol -neurontin, robaxin -MRI L-spine -ortho-spine consulted -PT/OT evaluation recommending d/c home -ortho evaluation appreciated, back brace, pain control, PT (2) Hypertension: -losartan -HCTZ -metoprolol (3) Hyperlipidemia: -atorvastatin (4) Anxiety: -lexapro Plan Heparin SQ for DVT px Admission HPI Per Admitting Provider Pt is an 84 y/o female from [place] with pmh of HTN, HLD, anxiety, who presents worsening lower back pain with pain that radiates down her legs and difficulty walking. Pt started having back pain 2 years ago after a fall. She was placed in PT by her primary care doctor 2 weeks ago and her symptoms have progressed. She was sent in by her PMD for further imaging and orthopedics evaluation. Pt has no urinary incontinence or paresthesias. She had CT L spine which showed L3 compression fracture. Pt was given morphine, gabapentin and Robaxin. Discharge Exam GENERAL APPEARANCE NAD, activity normal for age, well developed/ well nourished, no cyanosis, pallor, or diaphoresis. EYES lids/conjunctiva normal. EARS/NOSE/THROAT Mucous membranes moist, nares normal, lips/teeth normal uvula midline without oral pharyngeal erythema, exudate or swelling TMs normal bilaterally. No lymphangitis/lymphedema. HEAD/NECK normocephalic atraumatic, no facial trauma, neck is supple. RESPIRATORY respiratory effort normal, speaks in full sentences, no tripod position, no accessory muscle use. Lungs clear to auscultation without rhonchi, wheezes, rales CARDIAC Regular rate and rhythm, no edema. ABDOMINAL Soft, ND/NT. No evidence of fluid wave. No pulsatile masses on exam, rebound tenderness, Jackson sign or pain over Mcburney's point. MUSCLES/EXTREMITIES Lumbar tenderness SKIN Warm, pink and dry. No rashes, dermatoses, petechiae or lesions. NEUROLOGICAL Speech is clear and appropriate. Normal level of consciousness. Gait and coordination are normal. 5/5 strength in all extremities. PSYCH Normal mood and affect. Judgement/competence is appropriate Discharge Plan Discharge Items Patient Disposition: Home - Self-Care Reason For Visit: BACK PAIN Discharge Diagnosis: L3 compression fx Condition on Discharge: Fair Activity: Resume your previous activity Non-emergency contact: Primary Care Provider Call non-emergency contact if: you have any medication questions Follow-up/Referrals: Loly Levi MD [Primary Care Provider] - Diet: Regular Addtl Attending Provider Instructions: Follow up with PMD in 1 week Pending Studies at Discharge: No Stand-Alone Forms: My [facility] [employer] | VIP, Smoking Cessation Medications and DC Order Prescriptions: New methocarbamol 500 mg Tablet 500 mg PO TID PRN (Reason: spasms) Qty: 30 0RF tramadol 50 mg Tablet 50 mg PO Q4H PRN (Reason: pain) Qty: 30 0RF gabapentin 100 mg Capsule 100 mg PO TID Qty: 90 0RF (DME) Ultra-Light Rollator Misc See Rx Instructions .Route Qty: 1 0RF Rx Instructions: As directed Continued atorvastatin 20 mg tablet 20 mg PO DAILY Qty: 90 3RF hydrochlorothiazide 50 mg tablet 50 mg PO DAILY Qty: 90 3RF omeprazole 40 mg capsule,delayed release(DR/EC) 40 mg PO DAILY Qty: 90 3RF escitalopram oxalate 10 mg tablet 10 mg PO DAILY Qty: 90 3RF losartan 50 mg tablet 50 mg PO DAILY Qty: 90 1RF metoprolol succinate 25 mg tablet extended release 24 hr 25 mg PO DAILY Qty: 90 3RF metoprolol tartrate 50 mg tablet 0 mg PO BID Patient Comments: 10/21-last filled 02/06/24 90 day supply #180 Discharge Orders: Discharge Order (Routine); Ordered 10/23/24 Ordered By: Bay Chacon Admission Data Admit Date/Time: 10/21/24 16:11 Attending Provider: Bay Chacon Admit Provider: Bay Chacon Primary Care Provider: Loly Levi V. Other Providers: Darwin Foreman; Naeem Morris; Pearl Nichols; Kianna Cline; Haris Romero; Louie Beckwith; Palomo Garza; Haris Nichols; Bay Chacon Hospital Stay Data Consultations 10/21/24 16:09 Consult Orthopedic Spine Surgery Routine 08/18/25 16:30 ED Decision to Admit Stat Diagnostic Imagining Performed 10/21/24 11:04 CT lumbar spine wo con Stat 10/21/24 16:10 MRI Lumbar Spine [MR lumbar spine wo con] Stat Pending Results Patient Have Any Pending Studies at Discharge: No Discharge Instructions Given to Patient (Per Discharging Provider) Follow up with PMD in 1 week Total Time Total Time Spent Total Time Spent (In Minutes): 50 Coding Level of Care Code 69768 INP/OBS DISCH >30 MIN Diagnoses Back pain M54.9 Hypertension I10 Hyperlipidemia E78.5 Anxiety F41.9"
--- NOTE | 2024-10-25 13:59 | Electrocardiogram Report ---
Test Reason : Blood Pressure : */* mmHG Vent. Rate : 44 BPM Atrial Rate : 44 BPM P-R Int : 186 ms QRS Dur : 92 ms QT Int : 510 ms P-R-T Axes : 90 -34 15 degrees QTcB Int : 436 ms Marked sinus bradycardia with blocked PAC Left axis deviation Pulmonary disease pattern Minimal voltage criteria for LVH, may be normal variant ( Puma product ) Nonspecific T wave abnormality Abnormal ECG When compared with ECG of 15-Sep-2022 20:27, Vent. rate has decreased by 46 bpm Nonspecific T wave abnormality, worse in Anterolateral leads Confirmed by Todd Patterson ([id number]) on 10/25/2024 1:58:46 PM Referred By: REFERRED SELF Confirmed By: Todd Patterson
== END 2024-10-23 14:52 | disposition home or self-care (01) | DRG 544 ==
LOC: ED 10:29 → 3W 16:11

== ENCOUNTER 2025-02-02 07:06 | Inpatient (IN) ==
[2025-02-02 07:48] LABS: Hematocrit (blood only) 35.9 % (37.0-47.0); Hemoglobin 12.3 g/dL (12.0-16.0); Immature Granulocytes # (auto) 0.06 K/uL (0.01-0.20); Immature Granulocytes % (auto) 0.6 %; Mean Corpuscular Hemoglobin 30.1 pg (25.0-34.0); Mean Corpuscular Volume 88.0 fL (80.0-100.0); Platelet Count 179 K/uL (130-400); RDW Standard Deviation 43.8 fL (36.4-46.3); Red Blood Count 4.08 M/uL (4.20-5.40); White Blood Count 9.40 K/ul (4.8-10.8)
[2025-02-02 08:06] LABS: Alanine Aminotransferase 30.0 U/L (7-52); Albumin Globulin Ratio 1.6 (0.9-2); Albumin Level 4.2 gm/dl (3.4-5.0); Alkaline Phosphatase 94.0 U/L (34-104); Anion Gap 10.0 (3-11); Bilirubin,Total 0.8 mg/dl (0.2-1.0); Blood Urea Nitrogen 24.0 mg/dl (6-23); Calcium 9.5 mg/dl (8.6-10.3); Carbon Dioxide 26.0 mmol/L (21-32); Chloride 102.0 mmol/L (98-107); Creatine Kinase 67.0 U/L (26-192); Creatinine Clr Calc Pharmacy 36.7 ml/min; Globulin 2.6 gm/dl (2.5-4.0); Glucose 127.0 mg/dl (70-99(Fasting)); Potassium 3.2 mmol/L (3.5-5.1); Sodium 138.0 mmol/L (136-145); Total Protein 6.8 gm/dl (6.0-8.3)
[2025-02-02 08:17] LABS: INR 1.1 (0.9-1.1); Partial Thromboplastin Time 23 Seconds (21-31); Prothrombin Time 11.5 Seconds (9.0-12.0)
[2025-02-02] MEDS: KETOROLAC TROMETHAMINE 15 MG/ML VIAL IV ONE (08:17)
[2025-02-02] MEDS: ACETAMINOPHEN 1,000 MG/100 ML VIAL IV STA (08:17)
--- NOTE | 2025-02-02 08:23 | CT Scan Report ---
EXAM: CT Head Without Intravenous Contrast INDICATION: Fall TECHNIQUE: Axial computed tomography images of the head/brain without intravenous contrast. Sagittal and/or coronal reformats are provided. Sagittal and coronal reformatted images were created and reviewed. This CT exam was performed using one or more of the following dose reduction techniques: automated exposure control, adjustment of the mA and/or kV according to patient size, and/or use of iterative reconstruction technique. COMPARISON: No relevant prior studies available. FINDINGS: Limitations: None. Brain and extra-axial spaces: There is age appropriate cortical atrophy and chronic ischemic periventricular white matter hypodensity. No acute infarct, hemorrhage or mass noted. 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 Bones/joints: No acute changes. Soft tissues: No acute abnormality noted. Vasculature: No acute abnormality noted. Sinuses: No layering fluid in the visualized portions of the paranasal sinuses. Mastoid air cells: No mastoid effusion. Orbits: No acute abnormality noted. IMPRESSION: Cerebral atrophy. No acute changes. ACT 112: N/A Electronically signed by Tessy Downey 02-02-2025 08:23 AM
--- NOTE | 2025-02-02 08:36 | Emergency Department Note ---
Impression & Plan Closed hip fracture ED Provider Note NAME: EDGAR XIE AGE: 84 SEX: F : 1940 ARRIVES VIA: Ambulance INFORMANT: Patient, ED PROVIDER(S): Heather Chase MD CHIEF COMPLAINT: Left hip pain HPI: This is a 84-year-old female here for left hip pain. Daughter is with patient who provides history. Patient does not speak Croatian. I did offer a caustic room attendant which she declined. Noted that patient did fall yesterday, was able to ambulate but then today when using the bathroom, was unable to get off the toilet. Excruciating left hip pain. Unable to ambulate as a result. Unclear whether patient had hit her head yesterday. No thinners. No loss consciousness. Daughter also noted patient to have diarrhea as well as nausea and vomiting today. No fevers or chills are noted otherwise. No chest pain. ROS: See above HPI for pertinent positives & negatives. A total of 10 systems reviewed and were otherwise negative. PAST MEDICAL HISTORY: See Below PAST SURGICAL HISTORY: See Below FAMILY HISTORY: See Below SOCIAL HISTORY: See Below HOME MEDICATIONS: See Below ALLERGIES: See Below VITALS: See Below PHYSICAL EXAMINATION: General: resting comfortably in no acute distress Head: Normocephalic and atraumatic Eyes: Normal inspection, extraocular muscles intact Ear, nose, throat: Normal external exam Neck: Normal range of motion Respiratory: lungs clear to auscultation bilaterally Cardiovascular: Regular rate/rhythm, no murmur GI: soft, nontender, no guarding or rebound Extremities: Left hip is shortened and externally rotated Neuro: The patient awake and alert, appropriately conversive, no focal deficits, symmetric faces Skin: Warm, dry, and intact MEDICAL DECISION MAKING: This is a 84-year-old female present for left hip pain. Patient appears to have a hip fracture on examination with a shortened and externally rotated hip. She has pain with range of motion. - Hip x-ray does reveal a left greater trochanteric hip fracture with slight displacement - CT imaging of the head is currently negative - Patient appears otherwise in pain we will give Tylenol/Toradol -Chest Xray independently interpreted by me showing no pneumothorax, focal opacity, or pleural effusions. - Patient will require admission at this time for operative management - Care discussed with Dr. Gibbs, orthopedic surgeon for consultation. He will see the patient for operative management, to be kept n.p.o. -Care discussed with Dr. Butler for admission Differential diagnosis: Hip fracture, intracranial hemorrhage, pelvic fracture Independent History obtained from: Daughter Diagnostics interpreted by me: ECG: ECG independently interpreted by me with normal sinus rhythm, rate of 62, normal axis, first-degree AV block, normal QRS, normal QTc, no ST segment elevations consistent with STEMI criteria Cardiac Monitoring: An order was placed for continuous cardiac monitoring. The monitor shows a rate of 67 with sinus rhythm. Past Med/Surg History Problem List (Updated 02/02/25 @ 14:26 by Heather Chase MD) Closed hip fracture (Acute) Hypokalemia Hip fracture due to osteoporosis Lumbar spinal stenosis (Chronic) Spondylolisthesis, lumbosacral region Lumbosacral radiculopathy Compression fracture of lumbar vertebra (Acute ~10/21/24) Subtle superior endplate compression deformity at L3 resulting in 10% vertebral body height loss. Bradycardia (Acute) Ambulatory dysfunction (Acute) SI joint arthritis Hip pain, bilateral Tinnitus, right ear Sensorineural hearing loss, bilateral Vitamin D deficiency Hyperglycemia Decreased hearing of both ears Anxiety GERD (gastroesophageal reflux disease) Chronic UTI Low back pain Hypertension Hyperlipidemia Health care maintenance Medical History Back pain Right leg pain Right leg swelling Impacted cerumen of both ears Low serum potassium Surgical History No history of previous surgery Family History Denies family history of Ovarian cancer Prostate cancer Myocardial infarction Breast cancer Colorectal cancer Social History Smoking Status: Never smoker Second Hand Exposure: No; Do You Dip or Chew Tobacco: No; Hx Alcohol Use: No Hx Substance Use: No Preferred Language: Nepali Communication Ability: Effective Communication Ability Comment: farsi- daughter translate Communication Tools: Language 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 Visual Impairment: No Limitations Hearing Ability: Normal Tank Welder Required: Yes Beliefs That Will Affect Care: None Current Living Situation: Alone Current Living Situation Comment: usually lives in apartment alone, has been staying with daughter Feels Safe at Home: Yes Seatbelt Use: always Assistive Devices: Cane Allergies Allergies Allergy/AdvReac Type Severity Reaction Status Date / Time CT DYE Allergy Unknown HIVES Uncoded 01/02/25 10:23 Home Meds Home Medications Medication Instructions Recorded Confirmed aspirin 81 mg tablet,delayed 81 mg PO DAILY 01/02/25 02/02/25 release (Enteric Coated Aspirin) Previous Rx's Medication Instructions Recorded atorvastatin 20 mg tablet 20 mg PO DAILY #90 tabs 10/04/23 hydrochlorothiazide 50 mg tablet 50 mg PO DAILY #90 tabs 10/04/23 omeprazole 40 mg capsule,delayed 40 mg PO DAILY #90 caps 10/04/23 release escitalopram oxalate 10 mg tablet 10 mg PO DAILY #90 tabs 07/04/24 metoprolol succinate 25 mg 25 mg PO DAILY #90 tabs 09/10/24 tablet,extended release 24 hr methocarbamol 500 mg tablet 500 mg PO TID PRN spasms #30 tabs 10/23/24 walker (Ultra-Light Rollator misc) #1 ea 10/23/24 losartan 50 mg tablet 50 mg PO DAILY #90 tabs 11/22/24 diclofenac sodium 50 mg 50 mg PO BID #60 tabs 12/30/24 tablet,delayed release gabapentin 100 mg capsule 100 mg PO BID #60 caps 12/30/24 gabapentin 300 mg capsule 300 mg PO BID #60 caps 12/30/24 Results & Data (ED) Vital Signs Vital Signs - 24 hr 02/02/25 07:14 02/02/25 07:15 02/02/25 07:15 Temperature 37.3 C 37.3 C Temperature Source Oral Oral Pulse Rate 65 63 Pulse Rate [Apical] 63 Respiratory Rate 16 16 Respiratory Effort / Characteristics Non-Labored Spontaneous Non-Labored Spontaneous Respiratory Depth Normal Normal Respiratory Pattern Regular Regular Blood Pressure 149/85 H Blood Pressure [Right Arm] 149/85 H Blood Pressure Mean 106 Blood Pressure Mean [Right Arm] 106 Pulse Oximetry 91 91 Oxygen Delivery Method Room Air Room Air Oxygen Flow Rate Sepsis Recent Fever Within 48 Hours No Sepsis New/Unexplained Change in Mental Status No Sepsis Action Taken by Nursing No Action Required 02/02/25 09:00 Temperature Temperature Source Pulse Rate Pulse Rate [Apical] 67 Respiratory Rate 16 Respiratory Effort / Characteristics Non-Labored Spontaneous Respiratory Depth Normal Respiratory Pattern Regular Blood Pressure Blood Pressure [Right Arm] 150/87 H Blood Pressure Mean Blood Pressure Mean [Right Arm] 108 Pulse Oximetry 95 Oxygen Delivery Method Nasal Cannula Oxygen Flow Rate 2 Sepsis Recent Fever Within 48 Hours Sepsis New/Unexplained Change in Mental Status Sepsis Action Taken by Nursing Laboratory Data 02/02/25 07:15 02/02/25 07:15 Lab Results 02/02/25 Range/Units 07:15 WBC 9.40 (4.8-10.8) K/ul RBC 4.08 L (4.20-5.40) M/uL Hgb 12.3 (12.0-16.0) g/dL Hct 35.9 L (37.0-47.0) % MCV 88.0 (80.0-100.0) fL MCH 30.1 (25.0-34.0) pg MCHC 34.3 (32.0-36.0) g/dL RDW Std Deviation 43.8 (36.4-46.3) fL RDW Coeff of Abelardo 13.6 (11.5-14.5) % Plt Count 179 (130-400) K/uL MPV 9.9 (9.4-12.4) fL Immature Gran % (Auto) 0.6 % Neut % (Auto) 67.9 % Lymph % (Auto) 19.8 % [place] % (Auto) 8.2 % Eos % (Auto) 3.1 % Baso % (Auto) 0.4 % Neut # (Auto) 6.38 (1.40-6.50) K/uL Lymph # (Auto) 1.86 (1.20-3.40) K/uL [place] # (Auto) 0.77 H (0.11-0.59) K/uL Eos # (Auto) 0.29 (0.00-0.50) K/uL Baso # (Auto) 0.04 (0.00-0.20) K/uL Immature Gran # (Auto) 0.06 (0.01-0.20) K/uL PT 11.5 (9.0-12.0) Seconds INR 1.1 (0.9-1.1) APTT 23 (21-31) Seconds PTT Ratio 0.8 Sodium 138 (136-145) mmol/L Potassium 3.2 L (3.5-5.1) mmol/L Chloride 102 (98-107) mmol/L Carbon Dioxide 26 (21-32) mmol/L Anion Gap 10 (3-11) BUN 24 H (6-23) mg/dl Creatinine 0.99 (0.6-1.2) mg/dl Est Cr Clr Drug Dosing 36.7 ml/min eGFR 55.53 BUN/Creatinine Ratio 24.2 H (10-20) Glucose 127 H (70-99(Fasting)) mg/dl Calcium 9.5 (8.6-10.3) mg/dl Total Bilirubin 0.8 (0.2-1.0) mg/dl AST 33 (13-39) U/L ALT 30 (7-52) U/L Alkaline Phosphatase 94 (34-104) U/L Total Creatine Kinase 67 (26-192) U/L Total Protein 6.8 (6.0-8.3) gm/dl Albumin 4.2 (3.4-5.0) gm/dl Globulin 2.6 (2.5-4.0) gm/dl Albumin/Globulin Ratio 1.6 (0.9-2) Administered Medications Acetaminophen (Acetaminophen 325 Mg Tab) 650 mg PO Q6H REPLACED BY [facility] Stop: 03/04/25 13:59 Last Admin: 02/02/25 13:04 Dose: 650 mg Documented By: TINY Escitalopram Oxalate (Escitalopram Oxalate 10 Mg Tab) 10 mg PO DAILY REPLACED BY [facility] Stop: 03/04/25 12:44 Last Admin: 02/02/25 13:03 Dose: 10 mg Documented By: TINY Lactated Ringer's (Lr) 1,000 mls @ 80 mls/hr IV .[id number] REPLACED BY [facility] Stop: 02/05/25 12:21 Last Admin: 02/02/25 12:50 Dose: 80 mls/hr Documented By: TINY Metoprolol Succinate (Metoprolol Succ 25mg Ext Rel Tab) 25 mg PO DAILY REPLACED BY [facility] Stop: 03/04/25 12:29 Last Admin: 02/02/25 12:51 Dose: 25 mg Documented By: TINY Morphine Sulfate (Morphine Sulfate 2 Mg/Ml Carp) 2 mg IV Q3H PRN PRN Reason: Pain (6,7,8,9,10) Stop: 02/16/25 12:21 Last Admin: 02/02/25 13:05 Dose: 2 mg Documented By: TINY Pantoprazole Sodium (Pantoprazole 40 Mg Tab) 40 mg PO DAILY [place] Stop: 03/04/25 12:44 Last Admin: 02/02/25 13:03 Dose: 40 mg Documented By: TINY Discontinued Medications Acetaminophen (Ofirmev) 1,000 mg in 100 mls @ 400 mls/hr IV NOW STA Stop: 02/02/25 08:07 Last Infusion: 02/02/25 09:17 Dose: Infused Documented By: Admin: 02/02/25 08:17 Dose: 400 mls/hr Documented By: SAMANTHA Ketorolac Tromethamine (Ketorolac Tromethamine 15 Mg/Ml Vial) 15 mg IV NOW ONE Stop: 02/02/25 07:54 Last Admin: 02/02/25 08:17 Dose: 15 mg Documented By: SAMANTHA Potassium Chloride (Potassium Chloride Crtab 20 Meq Tabcr) 40 meq PO NOW STA Stop: 02/02/25 09:54 Last Admin: 02/02/25 10:29 Dose: 40 meq Documented By: SAMANTHA Imaging Data Radiologist's Impression: Head CT 02/02/25 07:28 EXAM: CT Head Without Intravenous Contrast INDICATION: Fall TECHNIQUE: Axial computed tomography images of the head/brain without intravenous contrast. Sagittal and/or coronal reformats are provided. Sagittal and coronal reformatted images were created and reviewed. This CT exam was performed using one or more of the following dose reduction techniques: automated exposure control, adjustment of the mA and/or kV according to patient size, and/or use of iterative reconstruction technique. COMPARISON: No relevant prior studies available. FINDINGS: Limitations: None. Brain and extra-axial spaces: There is age appropriate cortical atrophy and chronic ischemic periventricular white matter hypodensity. No acute infarct, hemorrhage or mass noted. 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 Bones/joints: No acute changes. Soft tissues: No acute abnormality noted. Vasculature: No acute abnormality noted. Sinuses: No layering fluid in the visualized portions of the paranasal sinuses. Mastoid air cells: No mastoid effusion. Orbits: No acute abnormality noted. IMPRESSION: Cerebral atrophy. No acute changes. ACT 112: N/A Electronically signed by Tessy Downey 02-02-2025 08:23 AM Hip X-Ray 02/02/25 07:28 EXAM: XR hip LT min 2V CLINICAL HISTORY: hip fracture/fall TECHNIQUE: X-ray images of the left hip joints in AP and lateral projections. COMPARISON: CR dated 10/14/2024. FINDINGS: Left hip Joint: Generalized reduced bone density. There is evidence of a comminuted left intertrochanteric fracture showing posteromedial comminution, with the fractured neck beak impacted into the shaft, with co-existent superior displacement of the shaft and both trochanters fractured, the lesser being displaced anteriorly in the soft tissues. The femoral head is however seen well within the acetabulum with reduced hip joint space, in keeping with osteoarthritic changes. Visualized left sacroiliac joints appear intact. Rest of the bones of visualized left hemipelvis appear grossly unremarkable. Soft Tissues: Marked left periarticular soft tissue swelling is seen. IMPRESSION: 1. Comminuted left intertrochanteric fracture as detailed above, with marked periarticular soft tissue swelling. New finding. 2. Rest of the bones of visualized left hemipelvis appear grossly unremarkable. 3. Osteoarthritic changes in the left hip joint. Disclaimer: A subtle bone abnormality or fracture may not be readily apparent on X-rays, thus clinical correlation and further imaging including follow-up CT, MRI, or follow-up X-rays are advised as needed. Electronically signed by Todd Monsalve 02-02-2025 09:03 AM Chest X-Ray 02/02/25 07:53 EXAM: XR chest 1V portable CLINICAL HISTORY: Pre-op CXR TECHNIQUE: An X-ray image of the chest is obtained in AP projection. COMPARISON: The prior CT pulmonary angiography and CR dated 09/15/2022 were reviewed. FINDINGS: Pulmonary Parenchyma: Lungs are clear bilaterally. No evidence of consolidation, collapse, or focal opacities. No pulmonary nodules are identified. No evidence of pleural effusion or pleural thickening. Heart and Mediastinum: Mildly enlarged cardiac size (unchanged). Prominent aortic knob. No mediastinal widening or masses. No hilar or mediastinal lymphadenopathy. Bony Thorax: Bony thorax appears intact without fractures or deformities. Degenerative changes of the scanned spine. Degenerative changes of both acromioclavicular joints. Degenerative changes of both glenohumeral joints. Widened acromioclavicular distance bilaterally, which needs clinical correlation. Soft Tissues: Soft tissue calcifications are related to the right humeral head. EKG leads projected over the chest wall. IMPRESSION: 1. No acute cardiopulmonary abnormalities are identified. 2. Mild cardiomegaly (unchanged). Electronically signed by Todd Monsalve 02-02-2025 08:38 AM Discharge Plan Visit Data Chief Complaint: Hip Pain Stated Complaint: Fall, Hip pain ED Provider: Heather Chase Discharge Problem: Closed hip fracture Patient Disposition: Admitted As Inpatient Condition: Fair Discharge Instructions Interventions: ED Discharge Assessment Last Done: 02/02/25 10:54 Discharge Problem: Closed hip fracture Qualifiers: Encounter type: initial encounter Laterality: left Qualified Code(s): S72.002A - Fracture of unspecified part of neck of left femur, initial encounter for closed fracture
--- NOTE | 2025-02-02 08:39 | XRay Report ---
EXAM: XR chest 1V portable CLINICAL HISTORY: Pre-op CXR TECHNIQUE: An X-ray image of the chest is obtained in AP projection. COMPARISON: The prior CT pulmonary angiography and CR dated 09/15/2022 were reviewed. FINDINGS: Pulmonary Parenchyma: Lungs are clear bilaterally. No evidence of consolidation, collapse, or focal opacities. No pulmonary nodules are identified. No evidence of pleural effusion or pleural thickening. Heart and Mediastinum: Mildly enlarged cardiac size (unchanged). Prominent aortic knob. No mediastinal widening or masses. No hilar or mediastinal lymphadenopathy. Bony Thorax: Bony thorax appears intact without fractures or deformities. Degenerative changes of the scanned spine. Degenerative changes of both acromioclavicular joints. Degenerative changes of both glenohumeral joints. Widened acromioclavicular distance bilaterally, which needs clinical correlation. Soft Tissues: Soft tissue calcifications are related to the right humeral head. EKG leads projected over the chest wall. IMPRESSION: 1. No acute cardiopulmonary abnormalities are identified. 2. Mild cardiomegaly (unchanged). Electronically signed by Todd Monsalve 02-02-2025 08:38 AM
--- NOTE | 2025-02-02 09:03 | XRay Report ---
EXAM: XR hip LT min 2V CLINICAL HISTORY: hip fracture/fall TECHNIQUE: X-ray images of the left hip joints in AP and lateral projections. COMPARISON: dated 10/14/2024. FINDINGS: Left hip Joint: Generalized reduced bone density. There is evidence of a comminuted left intertrochanteric fracture showing posteromedial comminution, with the fractured neck beak impacted into the shaft, with co-existent superior displacement of the shaft and both trochanters fractured, the lesser being displaced anteriorly in the soft tissues. The femoral head is however seen well within the acetabulum with reduced hip joint space, in keeping with osteoarthritic changes. Visualized left sacroiliac joints appear intact. Rest of the bones of visualized left hemipelvis appear grossly unremarkable. Soft Tissues: Marked left periarticular soft tissue swelling is seen. IMPRESSION: 1. Comminuted left intertrochanteric fracture as detailed above, with marked periarticular soft tissue swelling. New finding. 2. Rest of the bones of visualized left hemipelvis appear grossly unremarkable. 3. Osteoarthritic changes in the left hip joint. Disclaimer: A subtle bone abnormality or fracture may not be readily apparent on X-rays, thus clinical correlation and further imaging including follow-up CT, MRI, or follow-up X-rays are advised as needed. Electronically signed by Todd Monsalve 02-02-2025 09:03 AM
--- NOTE | 2025-02-02 09:45 | History & Physical Report ---
Date of Service February 02, 2025 Assessment & Plan (1) Hip fracture due to osteoporosis: (2) Lumbar spinal stenosis: (3) Hypertension: (4) Hypokalemia: Plan 84 y/o admitted with left hip fracture # pathologic osteoporotic fracture of L hip - NWB, try purewick otherwise solano if necessary for OR, neurovascular checks - consult ortho Dr. Gibbs, npo for now with IVF - pain control with scheduled APAP, continue usual gabapentin, morphine 1-2 mg IV q4h prn - AM CBC x 2 monitor for anemia - check vitamin D No medical contraindications to proceeding with urgent surgery to repair hip fracture # hypokalemia - replace po with 40 meq and check BMP in AM # HTN - continue metoprolol, losartan, hold HCTZ until good po postop # HLD - continue statin # Chronic LBP from LSS followed by pain clinic - noted. Cont gabapentin and prn methocarbamol # Hx recurrent UTI - none recently, takes cranberry, prefers to avoid catheter as much as possible # DVT ppx - SCDs, postop per ortho x 6 weeks PT/OT eval when appropriate postop Prefers full code according to her daughter. History of Present Illness Chief Complaint: left hip pain, unable to walk Primary Care Provider: Loly Levi MD 84 y/o with HTN and lumbar spinal stenosis followed by pain management. Fell yesterday and did hit head but remained ambulatory. No LOC. Was on commode and had diarrhea this am. After that was unable to stand and ambulate, severe L hip pain. Evaluated in ED and found to have left hip fracture. She is Albanian spe aking. Attempted to use video/phone translator/interpreter but unable because of technical problem. Her daughter at bedside interpreted and provided additional history. She has been living with her daughter since compression fracture earlier this year. Usually lives in her own apartment alone and was just preparing to go back there within a week or so. Yesterday she slipped on some water on the floor and fell backward, landing on left hip/buttock. She did hit her head on floor but no LOC and denies any neck or head pain. She was able to get up and ambulate yesterday though did have left hip pain. Today early this AM she had severe left hip pain and was unable to get up and stand/walk so came in to ED. Right now she has severe left hip pain with any movement. When still it does not hurt very badly. No chest pain or shortness of breath. Very hungry, no nausea or abdominal pain. Had a loose stool this AM. No injury to other extremities. After compression fracture used a walker, but improved and recently only using a cane. Never has chest pain or shortness of breath with ambulation. No cardiac history and no history of pulmonary disease. Allergies Allergy/AdvReac Type Severity Reaction Status Date / Time CT DYE Allergy Unknown HIVES Uncoded 01/02/25 10:23 Home Medications Medication Instructions Recorded Confirmed Type atorvastatin 20 mg tablet 20 mg PO DAILY #90 tabs 10/04/23 02/02/25 Rx hydrochlorothiazide 50 mg tablet 50 mg PO DAILY #90 tabs 10/04/23 02/02/25 Rx omeprazole 40 mg capsule,delayed 40 mg PO DAILY #90 caps 10/04/23 02/02/25 Rx release escitalopram oxalate 10 mg tablet 10 mg PO DAILY #90 tabs 07/04/24 02/02/25 Rx metoprolol succinate 25 mg 25 mg PO DAILY #90 tabs 09/10/24 02/02/25 Rx tablet,extended release 24 hr methocarbamol 500 mg tablet 500 mg PO TID PRN spasms #30 tabs 10/23/24 02/02/25 Rx walker (Ultra-Light Rollator misc) #1 ea 10/23/24 01/02/25 Rx losartan 50 mg tablet 50 mg PO DAILY #90 tabs 11/22/24 02/02/25 Rx diclofenac sodium 50 mg 50 mg PO BID #60 tabs 12/30/24 02/02/25 Rx tablet,delayed release gabapentin 100 mg capsule 100 mg PO BID #60 caps 12/30/24 02/02/25 Rx gabapentin 300 mg capsule 300 mg PO BID #60 caps 12/30/24 02/02/25 Rx aspirin 81 mg tablet,delayed 81 mg PO DAILY 01/02/25 02/02/25 History release (Enteric Coated Aspirin) Past Med/Surg History Problem List (Updated 02/02/25 @ 09:43 by Edie Butler MD) Hypokalemia Hip fracture due to osteoporosis Lumbar spinal stenosis (Chronic) Spondylolisthesis, lumbosacral region Lumbosacral radiculopathy Compression fracture of lumbar vertebra (Acute ~10/21/24) Subtle superior endplate compression deformity at L3 resulting in 10% vertebral body height loss. Bradycardia (Acute) Ambulatory dysfunction (Acute) SI joint arthritis Hip pain, bilateral Tinnitus, right ear Sensorineural hearing loss, bilateral Vitamin D deficiency Hyperglycemia Decreased hearing of both ears Anxiety GERD (gastroesophageal reflux disease) Chronic UTI Low back pain Hypertension Hyperlipidemia Health care maintenance Medical History Back pain Right leg pain Right leg swelling Impacted cerumen of both ears Low serum potassium Surgical History No history of previous surgery Family History Denies family history of Ovarian cancer Prostate cancer Myocardial infarction Breast cancer Colorectal cancer Social History Smoking Status: Never smoker Second Hand Exposure: No; Do You Dip or Chew Tobacco: No; Hx Alcohol Use: No Hx Substance Use: No Preferred Language: Albanian Communication Ability: Effective Communication Ability Comment: farsi- daughter translate Communication Tools: IPad and Physical Gestures Visual Impairment: No Limitations Hearing Ability: Normal Custom Frame Assembler Required: Yes Beliefs That Will Affect Care: None Current Living Situation: Alone Feels Safe at Home: Yes Seatbelt Use: always Assistive Devices: Cane Review of Systems Review of Systems: All systems reviewed & are unremarkable except as noted in HPI & below Physical Exam Physical Exam: Last 24h vitals reviewed GEN: no acute distress, lying flat on ED gurney. Grimaces with movement. HEENT: pupils equal, sclerae anicteric, moist MM RESP: normal WOB, CTAB CV: reg no mrg ABD: soft/nt/nd +BT : no solano SKIN: warm and dry, no generalized rashes EXT: LLE foreshortened and externally rotated. lower leg and foot warm and well perfused. DP pulse intact. sensation intact. NEURO: AOx person, place, and situation. Face symmetric, speech normal, moves 4 ext spontaneously and equally Results & Data Results & Data Vital Signs (Past 12 Hours) Vital Signs Temp Pulse Pulse Resp BP BP Pulse Ox 02/02/25 09:00 67 16 150/87 H 95 02/02/25 07:15 37.3 C 63 16 149/85 H 91 02/02/25 07:15 37.3 C 63 16 149/85 H 91 02/02/25 07:14 65 O2 Del Method O2 Flow Rate 02/02/25 09:00 Nasal Cannula 2 02/02/25 07:15 Room Air 02/02/25 07:15 Room Air 02/02/25 07:14 Laboratory Results W9, Hg 12, Plt normal K 3.2, Cr 1 LFT wnl coags wnl Ua pending CXR - personally reviewed the CXR film - clear lungs mild cardiomegaly Hip xray - L fracture head CT - no acute findings EKG - personally interpreted tracing - sinus, leftward axis, no acute ischemic changes Code Status & VTE Plan VTE Prophylaxis Plan VTE Prophylaxis will be ordered: Yes PG Care Time/CCT Total # of Minutes Spent Total Time Spent with Patient: Total time spent is greater than 50% in coordination of care (as documented) at patient's floor/unit and/or counseling patient: Coding Level of Care Code 23720 INT INP/OBS CARE 3/75MIN Diagnoses Hip fracture due to osteoporosis M80.059A Lumbar spinal stenosis M48.061 Neurogenic claudication status: unspecified Hypertension I10 Hypokalemia E87.6 (2) Lumbar spinal stenosis Neurogenic claudication status: unspecified Qualified Code(s): M48.061 - Spinal stenosis, lumbar region without neurogenic claudication
[2025-02-02] MEDS: POTASSIUM CHLORIDE CRTAB 20 MEQ TABCR PO STA (10:29)
--- NOTE | 2025-02-02 10:52 | Orthopedic Consultation ---
Date of Consultation February 02, 2025 Assessment & Plan (1) Hip fracture due to osteoporosis: Patient has a left intertrochanteric extra of her hip; Four-part. Surgical intervention discussed and recommended. Risks and complications of the procedure were explained to the patient and her family and include but are not limited to infection, pain, bleeding, scarring, nerve or blood vessel damage, wound problems, weakness, stiffness, incomplete relief of symptoms, tendon injury, malunion,, hardware failure, fracture, blood clots, embolisms, heart attack, stroke and . All questions were answered and informed consent was obtained today. Patient will be admitted to the hospitalist service. She has been cleared for surgery. Plans for open reduction internal fixation of her left hip fracture later today. Will keep n.p.o. Postoperative course was discussed. She will be allowed to weight-bear as tolerated after surgery. She will get in-house physical therapy and Occupational Therapy as well. She recently has transitioned from a walker to a cane from her L3 compression fracture but she was informed that she would go back to using a walker. She most likely will be on aspirin 81 mg twice daily postoperatively for DVT prophylaxis. Case management will see patient for disposition needs after surgery. Surgical site was marked by Dr. Gibbs. Dr. Gibbs present for today's exam. All questions were answered. They understand and agree with the plan. Preoperative orders have been placed for IV Ancef and TXA. Supervising Physician Co-Signing Physician Notes I, Dr. Gibbs, saw and examined the patient with my PA, discussing the management. I reviewed my PA's note and agree with the documented findings in the plan of care I developed. History of Present Illness Reason for Consultation: left hip fracture Requesting Physician: Ace Gibbs MD History of Present Illness 84 y/o with HTN and lumbar spinal stenosis followed by pain management. Fell yesterday and did hit head but remained ambulatory. No LOC. Was on commode and had diarrhea this am. After that was unable to stand and ambulate, severe L hip pain. Evaluated in ED and found to have left hip fracture. She is Slovenian speaking. Attempted to use video/phone parts interpreter but unable because of technical problem. Her daughter at bedside interpreted and provided additional history. She has been living with her daughter since compression fracture earlier this year. Usually lives in her own apartment alone and was just preparing to go back there within a week or so. Yesterday she slipped on some water on the floor and fell backward, landing on left hip/buttock. She did hit her head on floor but no LOC and denies any neck or head pain. She was able to get up and ambulate yesterday though did have left hip pain. Today early this AM she had severe left hip pain and was unable to get up and stand/walk so came in to ED. Right now she has severe left hip pain with any movement. When still it does not hurt very badly. No chest pain or shortness of breath. Very h ungry, no nausea or abdominal pain. Had a loose stool this AM. No injury to other extremities. After compression fracture used a walker, but improved and recently only using a cane. Never has chest pain or shortness of breath with ambulation. No cardiac history and no history of pulmonary disease. Patient seen and evaluated by Dr. Gibbs today. Interpretation done by patient's daughter at the agreement of her daughter and the patient. Allergies Allergy/AdvReac Type Severity Reaction Status Date / Time CT DYE Allergy Unknown HIVES Uncoded 01/02/25 10:23 Home Medications Medication Instructions Recorded Confirmed Type atorvastatin 20 mg tablet 20 mg PO DAILY #90 tabs 10/04/23 02/02/25 Rx hydrochlorothiazide 50 mg tablet 50 mg PO DAILY #90 tabs 10/04/23 02/02/25 Rx omeprazole 40 mg capsule,delayed 40 mg PO DAILY #90 caps 10/04/23 02/02/25 Rx release escitalopram oxalate 10 mg tablet 10 mg PO DAILY #90 tabs 07/04/24 02/02/25 Rx metoprolol succinate 25 mg 25 mg PO DAILY #90 tabs 09/10/24 02/02/25 Rx tablet,extended release 24 hr methocarbamol 500 mg tablet 500 mg PO TID PRN spasms #30 tabs 10/23/24 02/02/25 Rx walker (Ultra-Light Rollator [facility] [place]) #1 ea 10/23/24 01/02/25 Rx losartan 50 mg tablet 50 mg PO DAILY #90 tabs 11/22/24 02/02/25 Rx diclofenac sodium 50 mg 50 mg PO BID #60 tabs 12/30/24 02/02/25 Rx tablet,delayed release gabapentin 100 mg capsule 100 mg PO BID #60 caps 12/30/24 02/02/25 Rx gabapentin 300 mg capsule 300 mg PO BID #60 caps 12/30/24 02/02/25 Rx aspirin 81 mg tablet,delayed 81 mg PO DAILY 01/02/25 02/02/25 History release (Enteric Coated Aspirin) Patient History Medical History Back pain Right leg pain Right leg swelling Impacted cerumen of both ears Low serum potassium Surgical History No history of previous surgery Family History Denies family history of Ovarian cancer Prostate cancer Myocardial infarction Breast cancer Colorectal cancer Social History Smoking Status: Never smoker Second Hand Exposure: No; Do You Dip or Chew Tobacco: No; Hx Alcohol Use: No Hx Substance Use: No Preferred Language: Slovenian Communication Ability: Effective Communication Ability Comment: farsi- daughter translate Communication Tools: IPad and Physical Gestures Visual Impairment: No Limitations Hearing Ability: Normal Encoding Clerk Required: Yes Beliefs That Will Affect Care: None Current Living Situation: Alone Feels Safe at Home: Yes Seatbelt Use: always Assistive Devices: Cane Physical Exam Musculoskeletal: Exam of her left lower extremity: Left leg is slightly externally rotated and shortened. No range of motion of her left leg was attempted. Distal pulses are 2+. Full ankle range of motion and able to wiggle her toes. Capillary refill is brisk. No edema of the left lower extremity. The skin of her left hip is clean, dry and intact. Surgical site was marked. No knee joint effusion appreciated. All other extremities are benign and atraumatic Results & Data Vital Signs (Past 12 Hours) Vital Signs Temp Pulse Pulse Resp BP BP Pulse Ox 02/02/25 09:00 67 16 150/87 H 95 02/02/25 07:15 37.3 C 63 16 149/85 H 91 02/02/25 07:15 37.3 C 63 16 149/85 H 91 02/02/25 07:14 65 O2 Del Method O2 Flow Rate 02/02/25 09:00 Nasal Cannula 2 02/02/25 07:15 Room Air 02/02/25 07:15 Room Air 02/02/25 07:14 Laboratory Results 02/02/25 Range/Units 07:15 WBC 9.40 (4.8-10.8) K/ul RBC 4.08 L (4.20-5.40) M/uL Hgb 12.3 (12.0-16.0) g/dL Hct 35.9 L (37.0-47.0) % MCV 88.0 (80.0-100.0) fL MCH 30.1 (25.0-34.0) pg MCHC 34.3 (32.0-36.0) g/dL RDW Std Deviation 43.8 (36.4-46.3) fL RDW Coeff of Abelardo 13.6 (11.5-14.5) % Plt Count 179 (130-400) K/uL MPV 9.9 (9.4-12.4) fL Immature Gran % (Auto) 0.6 % Neut % (Auto) 67.9 % Lymph % (Auto) 19.8 % [place] % (Auto) 8.2 % Eos % (Auto) 3.1 % Baso % (Auto) 0.4 % Neut # (Auto) 6.38 (1.40-6.50) K/uL Lymph # (Auto) 1.86 (1.20-3.40) K/uL [place] # (Auto) 0.77 H (0.11-0.59) K/uL Eos # (Auto) 0.29 (0.00-0.50) K/uL Baso # (Auto) 0.04 (0.00-0.20) K/uL Immature Gran # (Auto) 0.06 (0.01-0.20) K/uL PT 11.5 (9.0-12.0) Seconds INR 1.1 (0.9-1.1) APTT 23 (21-31) Seconds PTT Ratio 0.8 Sodium 138 (136-145) mmol/L Potassium 3.2 L (3.5-5.1) mmol/L Chloride 102 (98-107) mmol/L Carbon Dioxide 26 (21-32) mmol/L Anion Gap 10 (3-11) BUN 24 H (6-23) mg/dl Creatinine 0.99 (0.6-1.2) mg/dl Est Cr Clr Drug Dosing 36.7 ml/min eGFR 55.53 BUN/Creatinine Ratio 24.2 H (10-20) Glucose 127 H (70-99(Fasting)) mg/dl Calcium 9.5 (8.6-10.3) mg/dl Total Bilirubin 0.8 (0.2-1.0) mg/dl AST 33 (13-39) U/L ALT 30 (7-52) U/L Alkaline Phosphatase 94 (34-104) U/L Total Creatine Kinase 67 (26-192) U/L Total Protein 6.8 (6.0-8.3) gm/dl Albumin 4.2 (3.4-5.0) gm/dl Globulin 2.6 (2.5-4.0) gm/dl Albumin/Globulin Ratio 1.6 (0.9-2) Diagnostic Findings Head CT 02/02/25 07:28 EXAM: CT Head Without Intravenous Contrast INDICATION: Fall TECHNIQUE: Axial computed tomography images of the head/brain without intravenous contrast. Sagittal and/or coronal reformats are provided. Sagittal and coronal reformatted images were created and reviewed. This CT exam was performed using one or more of the following dose reduction techniques: automated exposure control, adjustment of the mA and/or kV according to patient size, and/or use of iterative reconstruction technique. COMPARISON: No relevant prior studies available. FINDINGS: Limitations: None. Brain and extra-axial spaces: There is age appropriate cortical atrophy and chronic ischemic periventricular white matter hypodensity. No acute infarct, hemorrhage or mass noted. 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 Bones/joints: No acute changes. Soft tissues: No acute abnormality noted. Vasculature: No acute abnormality noted. Sinuses: No layering fluid in the visualized portions of the paranasal sinuses. Mastoid air cells: No mastoid effusion. Orbits: No acute abnormality noted. IMPRESSION: Cerebral atrophy. No acute changes. ACT 112: N/A Electronically signed by Tessy Downey 02-02-2025 08:23 AM Hip X-Ray 02/02/25 07:28 EXAM: XR hip LT min 2V CLINICAL HISTORY: hip fracture/fall TECHNIQUE: X-ray images of the left hip joints in AP and lateral projections. COMPARISON: CR dated 10/14/2024. FINDINGS: Left hip Joint: Generalized reduced bone density. There is evidence of a comminuted left intertrochanteric fracture showing posteromedial comminution, with the fractured neck beak impacted into the shaft, with co-existent superior displacement of the shaft and both trochanters fractured, the lesser being displaced anteriorly in the soft tissues. The femoral head is however seen well within the acetabulum with reduced hip joint space, in keeping with osteoarthritic changes. Visualized left sacroiliac joints appear intact. Rest of the bones of visualized left hemipelvis appear grossly unremarkable. Soft Tissues: Marked left periarticular soft tissue swelling is seen. IMPRESSION: 1. Comminuted left intertrochanteric fracture as detailed above, with marked periarticular soft tissue swelling. New finding. 2. Rest of the bones of visualized left hemipelvis appear grossly unremarkable. 3. Osteoarthritic changes in the left hip joint. Disclaimer: A subtle bone abnormality or fracture may not be readily apparent on X-rays, thus clinical correlation and further imaging including follow-up CT, MRI, or follow-up X-rays are advised as needed. Electronically signed by Todd Monsalve 02-02-2025 09:03 AM Chest X-Ray 02/02/25 07:53 EXAM: XR chest 1V portable CLINICAL HISTORY: Pre-op CXR TECHNIQUE: An X-ray image of the chest is obtained in AP projection. COMPARISON: The prior CT pulmonary angiography and CR dated 09/15/2022 were reviewed. FINDINGS: Pulmonary Parenchyma: Lungs are clear bilaterally. No evidence of consolidation, collapse, or focal opacities. No pulmonary nodules are identified. No evidence of pleural effusion or pleural thickening. Heart and Mediastinum: Mildly enlarged cardiac size (unchanged). Prominent aortic knob. No mediastinal widening or masses. No hilar or mediastinal lymphadenopathy. Bony Thorax: Bony thorax appears intact without fractures or deformities. Degenerative changes of the scanned spine. Degenerative changes of both acromioclavicular joints. Degenerative changes of both glenohumeral joints. Widened acromioclavicular distance bilaterally, which needs clinical correlation. Soft Tissues: Soft tissue calcifications are related to the right humeral head. EKG leads projected over the chest wall. IMPRESSION: 1. No acute cardiopulmonary abnormalities are identified. 2. Mild cardiomegaly (unchanged). Electronically signed by Todd Monsalve 02-02-2025 08:38 AM
--- NOTE | 2025-02-02 12:17 | Electrocardiogram Report ---
Test Reason : Blood Pressure : */* mmHG Vent. Rate : 62 BPM Atrial Rate : 62 BPM P-R Int : 216 ms QRS Dur : 94 ms QT Int : 454 ms P-R-T Axes : 35 -41 71 degrees QTcB Int : 460 ms Sinus rhythm with 1st degree A-V block Left axis deviation Nonspecific ST abnormality Abnormal ECG When compared with ECG of 21-Oct-2024 14:18, PA interval has increased Nonspecific T wave abnormality no longer evident in Inferior leads Nonspecific T wave abnormality, improved in Anterolateral leads Confirmed by Kin Kasper ([id number]) on 02/02/2025 12:16:45 PM Referred By: REFERRED SELF Confirmed By: Kin Kasper
[2025-02-02] MEDS ORDERED: NALOXONE HCL 0.4 MG/1 ML VIAL/CARP IV PRN (12:22)
[2025-02-02] MEDS ORDERED: MAGNESIUM HYDROXIDE SUSP 30 ML UDC PO PRN (12:22)
[2025-02-02] MEDS ORDERED: MoRPHine SULFATE 2 MG/ML CARP IV PRN (12:22)
[2025-02-02] MEDS ORDERED: ALUMINUM/MAGNESIUM SUSP 30 ML UDC PO PRN (12:22)
[2025-02-02 12:23] LABS: Appearance Urine Clear (Clear); Glucose Urine UA Negative (Negative)
[2025-02-02] MEDS: LACTATED RINGER'S 1,000 ML IV SCH (12:50)
[2025-02-02] MEDS: METOPROLOL SUCC 25MG EXT REL TAB PO SCH (12:51)
[2025-02-02] MEDS: ESCITALOPRAM OXALATE 10 MG TAB PO SCH (13:03)
[2025-02-02] MEDS: ACETAMINOPHEN 325 MG TAB PO SCH (13:04)
[2025-02-02] MEDS: MoRPHine SULFATE 2 MG/ML CARP IV PRN (13:05)
[2025-02-02] MEDS ORDERED: PROPOFOL IV EMULSION 10 MG/ML 20 ML VIAL IV ONE ×2 (13:31→16:18)
[2025-02-02] MEDS ORDERED: LIDOCAINE 2% 2 ML VIAL/AMP(20MG/ML) INFIL ONE (13:31)
[2025-02-02] MEDS ORDERED: ROCURONIUM BROMIDE 10 MG/ML 5 ML VIAL IV ONE (13:31)
[2025-02-02] MEDS ORDERED: ACETAMINOPHEN 1000 MG/100 ML IV IV ONE (13:35)
[2025-02-02] MEDS ORDERED: ATROPINE SULFATE 0.1 MG/ML 10ML SYR IV PRN (14:01)
[2025-02-02] MEDS ORDERED: ONDANSETRON INJ 2 MG/ML 2 ML VIAL IV PRN (14:01)
[2025-02-02] MEDS ORDERED: PROMETHAZINE HCL 6.25 MG in SODIUM CHLORIDE 0.9% 50 ML IV PRN (14:01)
--- NOTE | 2025-02-02 14:01 | Anesthesiology Consultation ---
Date of Service February 02, 2025 Assessment & Plan Chart Review Chart Review: Acceptable Risk for Surgery and Patient NOT seen in Pre Admission Testing Consults Requested none ASA ASA2 Proposed Anesthesia Anesthesia Type: General Risk / Benefits Reviewed With: PT / POA / Parent / Guardian, Accepts Plan and Informed Consent Obtained History Surgery Operation Date: 02/02/25 13:00 Proposed Procedures p Intramedullary Diego Femur - Frank Daron Gibbs MD Height/Weight Height: 5 ft Weight: 70.125 kg Allergies Allergy/AdvReac Type Severity Reaction Status Date / Time CT DYE Allergy Unknown HIVES Uncoded 01/02/25 10:23 Medications Home Medications Medication Instructions Recorded Confirmed Last Taken atorvastatin 20 mg tablet 20 mg PO DAILY #90 tabs 10/04/23 02/02/25 Unknown hydrochlorothiazide 50 mg tablet 50 mg PO DAILY #90 tabs 10/04/23 02/02/25 Unknown omeprazole 40 mg capsule,delayed 40 mg PO DAILY #90 caps 10/04/23 02/02/25 Unknown release escitalopram oxalate 10 mg tablet 10 mg PO DAILY #90 tabs 07/04/24 02/02/25 Unknown metoprolol succinate 25 mg 25 mg PO DAILY #90 tabs 09/10/24 02/02/25 Unknown tablet,extended release 24 hr methocarbamol 500 mg tablet 500 mg PO TID PRN spasms #30 tabs 10/23/24 02/02/25 Unknown walker (Ultra-Light Rollator misc) #1 ea 10/23/24 01/02/25 Unknown losartan 50 mg tablet 50 mg PO DAILY #90 tabs 11/22/24 02/02/25 Unknown diclofenac sodium 50 mg 50 mg PO BID #60 tabs 12/30/24 02/02/25 Unknown tablet,delayed release gabapentin 100 mg capsule 100 mg PO BID #60 caps 12/30/24 02/02/25 Unknown gabapentin 300 mg capsule 300 mg PO BID #60 caps 12/30/24 02/02/25 Unknown aspirin 81 mg tablet,delayed 81 mg PO DAILY 01/02/25 02/02/25 Unknown release (Enteric Coated Aspirin) Active Medications Generic Name Dose Route Start Last Admin Trade Name Freq PRN Reason Stop Dose Admin Acetaminophen 650 mg 02/02/25 14:00 02/02/25 13:04 Acetaminophen 325 Mg Tab PO 03/04/25 13:59 650 mg Q6H LAVERNE Administration Escitalopram Oxalate 10 mg 02/02/25 12:45 02/02/25 13:03 Escitalopram Oxalate 10 Mg Tab PO 03/04/25 12:44 10 mg DAILY LAVERNE Administration Lactated Ringer's 1,000 mls @ 80 mls/hr 02/02/25 12:22 02/02/25 12:50 Lr IV 02/05/25 12:21 80 mls/hr .[id number] LAVERNE Administration Metoprolol Succinate 25 mg 02/02/25 12:30 02/02/25 12:51 Metoprolol Succ 25mg Ext Rel Tab PO 03/04/25 12:29 25 mg DAILY LAVERNE Administration Morphine Sulfate 2 mg 02/02/25 12:22 02/02/25 13:05 Morphine Sulfate 2 Mg/Ml Carp IV 02/16/25 12:21 2 mg Q3H PRN Administration Pain (6,7,8,9,10) Pantoprazole Sodium 40 mg 02/02/25 12:45 02/02/25 13:03 Pantoprazole 40 Mg Tab PO 03/04/25 12:44 40 mg DAILY LAVERNE Administration Past Medical History Medical History Back pain Right leg pain Right leg swelling Impacted cerumen of both ears Low serum potassium Exercise / Class Metabolic Activity II 4-5 Yardwork/Stairs/Walk up hill Past Family History Family History Denies family history of Ovarian cancer Prostate cancer Myocardial infarction Breast cancer Colorectal cancer Past Surgical History Surgical History No history of previous surgery Past Anesthesia History No Hx of Anesthesia Complications and No Family Hx of Anesthesia Complications History of PONV No Hx of PONV and No Hx of Motion Sickness Social History Smoking Status: Never smoker Do You Dip or Chew Tobacco: No Hx Alcohol Use: No Hx Substance Use: No substance use type: does not use Physical Exam Vital Signs Last Vital Signs Temp 36.6 C 02/02/25 11:00 Pulse 81 02/02/25 11:00 Resp 18 02/02/25 11:00 BP 131/72 02/02/25 11:00 Pulse Ox 97 02/02/25 11:00 O2 Del Method Nasal Cannula 02/02/25 12:12 O2 Flow Rate 2 02/02/25 12:12 ENMT Mouth: no dentition abnormality Thyromental Distance: > or= 3.5 Finger Breadths Mallampati Class: II Neck normal visual inspection Respiratory normal respiratory effort Auscultation: lungs clear to auscultation bilaterally Cardiovascular Rate/Rhythm: regular rate and regular rhythm Psychiatric Orientation: alert Testing Laboratory Results 02/02/25 07:15 02/02/25 07:15 PT 11.5 Seconds (9.0-12.0) 02/02/25 07:15 INR 1.1 (0.9-1.1) 02/02/25 07:15 APTT 23 Seconds (21-31) 02/02/25 07:15 Urine Color Yellow 02/02/25 11:50 Urine Appearance Clear (Clear) 02/02/25 11:50 Urine pH 6.5 (4.5-7.5) 02/02/25 11:50 Ur Specific [place] 1.016 (1.000-1.030) 02/02/25 11:50 Urine Protein Negative (Negative) 02/02/25 11:50 Urine Glucose (UA) Negative (Negative) 02/02/25 11:50 Urine Ketones Negative (Negative) 02/02/25 11:50 Urine Nitrite Negative (Negative) 02/02/25 11:50 Ur Leukocyte Esterase Negative (Negative) 02/02/25 11:50
[2025-02-02] MEDS ORDERED: PHENYLEPHRINE HCL 10 MG/ML VIAL ONE (14:35)
[2025-02-02] MEDS: TRANEXAMIC ACID / 0.7% NACL 1,000 MG/100 ML BAG IV ONE (14:57)
[2025-02-02] MEDS: TRANEXAMIC ACID / 0.7% NACL 1000MG/100ML BAG IV ONE (15:43)
[2025-02-02] MEDS: BUPIVACAINE 0.5 % 5 MG/1 ML MPF 30ML VIAL ONE (15:58)
[2025-02-02] MEDS: LIDOCAINE 1%/EPINEPHRINE 1:100,000 50 ML VIAL ONE (15:59)
[2025-02-02] MEDS ORDERED: SUGAMMADEX SODIUM 200 MG/2 ML VIAL IV ONE (16:08)
[2025-02-02] MEDS ORDERED: ONDANSETRON INJ 2 MG/ML 2 ML VIAL ONE (16:08)
--- NOTE | 2025-02-02 16:23 | Post Operative Brief Note ---
Immediate Post Op Note Date of Surgery February 02, 2025 Pre & Post Diagnosis Operation Date: 02/02/25 13:00 Pre-Op Diagnosis: Left Hip Fracture Post-Op Diagnosis: Left Hip Fracture I identified the patient and participated in the time-out.: Yes Procedure Operation Date: 02/02/25 13:00 Actual Procedures p Open Reduction Internal Fixation Left Hip Fracture(Left) - Frank Gibbs MD Surgeon Frank Gibbs MD Parts Coordinator Carol Ann Simmons PA-C (No fellow avail) Estimated Blood Loss 50 Findings Consistent with Post-Op Diagnosis Fluids 700 cc Anesthesia Type General Complications none
--- NOTE | 2025-02-02 16:24 | Operative Report ---
Post Operative Report Pre & Post Diagnosis Operation Date: 02/02/25 13:00 Pre-Op Diagnosis: Left Hip Fracture, 4 part Inter-trochanteric Post-Op Diagnosis: Left Hip Fracture, 4 part Inter-trochanteric I identified the patient and participated in the time-out.: Yes Procedure Operation Date: 02/02/25 13:00 Actual Procedures p Open Reduction Internal Fixation Left Hip Fracture(Left) - Frank Gibbs MD Surgeon Frank Gibbs MD Public Relations Assistant Carol Ann Simmons PA-C (No fellow avail) Estimated Blood Loss 50 Findings Consistent with Post-Op Diagnosis Fluids 700 cc Specimens n/a Anesthesia Type General Complications none Indications The patient is a 84 year old female who sustained a left hip fracture from a ground level fall. The patients treatment options of conservative versus surgical intervention were discussed. Since the patient was an ambulatory prior to the injury and to avoid the risks of bed sores, pulmonary complications, and to give the best chance for ambulation, I recommended surgery. The patient and family understands the risks of surgery, which include but are not limited to: bleeding, infection, re-operation, damage to nerves and arteries, continued pain, failure of the hardware, mal-union, non-union, DVT, and . In addition, the patient is aware of the 20-30% morbidity associated with hip fracture for up to 1 year following a hip fracture. The patient and family understands all these instructions and explanations; all their questions have been satisfactorily addressed. The patient has elected to proceed with surgery ORIF left hip fracture, and the informed consent was signed. Description of Procedure Carol Ann Simmons PA-C is assisting with positioning and closure due to fellow not available. IMPLANTS: 1) 11 mm Intermediate Troch nail (Synthes). 2) 11 x 100 mm Helical screw. 3) 5 x 40 mm Locking screw. Procedure: The patient was taken to the Operating Room and placed in the supine position on the fracture table after general anesthesia was administered. A multidisciplinary time-out was performed identifying my initials on the left lower limb as the correct and operative limb. Prior to the incision being made, 2 grams of intravenous Ancef and 1g TXA were given. Fluoroscopy was brought in to ensure adequate x-rays images could be obtained. A reduction was performed with traction, adduction, and internal rotation of the operative limb. Once this was confirmed with Fluro, the left lower extremity was prepped in the standard fashion. The trochanter was marked as was the planned incision and trajectory of the helical screw. The incisions were injected with a 50:50 mixture of 1% Lidocaine plain and 0.5% Bupivacaine with epinephrine for a total of 15cc. The planned incision proximal to the greater trochanter was made and carried down through the Tensor Fascia Radha to expose the tip of the greater trochanter and the starting position. A starting guide wire was placed, and the starting awl, and after exchanging for long guide wire, sequential reamers up to 12.5 were used followed by the entry reamer were used to create the entry hole for the intermediate implant. A size 11 was selected. The implant was then inserted without difficulty. A small second and third incisions were made for placement of the helical blade and distal locking screw. These were placed through the aiming guide in the standard fashion. The Helical blade was locked in place. The traction was released. Final x-rays were obtained showing TAD of less than 25mm. The wounds were copiously irrigated. The Tensor Fascia Radha was closed with 0 Vicryl. The subcutaneous tissue was closed with 3-0 Vicryl. The skin was closed with ZipLine and shield. The incisions were covered with 4x4s and Tegaderm. The patient was transferred to her hospital bed and taken to the PACU in stable condition. The sponge and needle counts were correct. Post-op Instructions: The patient was re-admitted to the Hospitalist service. The patient will be WBAT with a walker. The patient will be seen by PT/OT. Labs will be checked in the am. DVT prophylaxis will be with TEDs, mechanical devices until 24hrs as the patient had a spinal and then ASA will be started. I attest to the content of the Intraoperative Record and any orders documented therein. Any exceptions are noted below.
--- NOTE | 2025-02-02 16:36 | Operative Report ---
Post Operative Report Pre & Post Diagnosis Operation Date: 02/02/25 13:00 <No data on this case meets the specified criteria> I identified the patient and participated in the time-out.: Yes Procedure Operation Date: 02/02/25 13:00 <No data on this case meets the specified criteria> Surgeon Frank Gibbs M.D. Maintenance Service Dispatcher Carol Ann Simmons PA-C (No fellow avail) Estimated Blood Loss 50 Findings Consistent with Post-Op Diagnosis Left intertrochanteric hip fracture - 4 part Specimens None Anesthesia Type General Description of Procedure Patient was taken to the operating room and placed under general anesthesia. They were given 2 g of IV Ancef for surgical prophylaxis and 1 gm of IV TXA preoperatively for bleeding prophylaxis. Time out was performed. They were prepped and draped in routine sterile fashion. I was present during the entire case and assisted with positioning, draping, instrumentation, closure and dressings. Please see Dr. Gibbs's operative report for further details regarding today's procedure. Patient was awakened and transferred to the recovery room in stable condition. I attest to the content of the Intraoperative Record and any orders documented therein. Any exceptions are noted below.
--- NOTE | 2025-02-02 18:11 | Anesthesiology Progress Note ---
Date of Service February 02, 2025 Anesthesia Post Procedure Vital Signs Vital Signs: Temp Pulse Pulse Pulse Resp BP BP 02/02/25 17:45 37 C 66 14 117/74 02/02/25 17:15 36.3 C L 66 16 123/76 02/02/25 17:05 36.5 C 67 17 126/74 02/02/25 16:55 66 17 116/74 02/02/25 16:45 63 18 119/75 02/02/25 16:38 36.3 C L 66 19 119/79 02/02/25 12:12 02/02/25 11:00 36.6 C 67 18 131/72 02/02/25 11:00 81 16 168/103 H 02/02/25 09:00 67 16 150/87 H 02/02/25 07:15 37.3 C 63 16 149/85 H 02/02/25 07:15 37.3 C 63 16 149/85 H 02/02/25 07:14 65 Pulse Ox O2 Del Method O2 Flow Rate 02/02/25 17:45 95 Nasal Cannula 2 02/02/25 17:15 95 Room Air 02/02/25 17:05 98 Nasal Cannula 4 02/02/25 16:55 92 Oxymask 2 02/02/25 16:45 94 Oxymask 4 02/02/25 16:38 93 Oxymask 6 02/02/25 12:12 Nasal Cannula 2 02/02/25 11:00 97 Nasal Cannula 2 02/02/25 11:00 95 Nasal Cannula 02/02/25 09:00 95 Nasal Cannula 2 02/02/25 07:15 91 Room Air 02/02/25 07:15 91 Room Air 02/02/25 07:14 Pain Intensity Left Hip: Pain Intensity: 5 Transfer of Care Handoff Completed per policy Notes Mental Status: alert / awake / arousable Patient Amnestic to Procedure: Yes Nausea / Vomiting: adequately controlled Pain: adequately controlled Airway Patency, RR, SpO2: stable & adequate BP & HR: stable & adequate Hydration State: stable & adequate Anesthetic Complications: no major complications apparent
[2025-02-02] MEDS: DOCUSATE SODIUM/SENNA 50/8.6MG TAB PO SCH (20:07)
[2025-02-02] MEDS: MELATONIN 3 MG TAB PO PRN (20:07)
[2025-02-02] MEDS: GABAPENTIN 300 MG CAP PO SCH (20:07)
[2025-02-02] MEDS: ASPIRIN 81 MG ECTAB PO SCH (20:11)
[2025-02-03 06:32] LABS: Hematocrit (blood only) 27.8 % (37.0-47.0); Hemoglobin 9.4 g/dL (12.0-16.0); Immature Granulocytes # (auto) 0.03 K/uL (0.01-0.20); Immature Granulocytes % (auto) 0.4 %; Mean Corpuscular Hemoglobin 30.6 pg (25.0-34.0); Mean Corpuscular Volume 90.6 fL (80.0-100.0); Platelet Count 146 K/uL (130-400); RDW Standard Deviation 45.1 fL (36.4-46.3); Red Blood Count 3.07 M/uL (4.20-5.40); White Blood Count 8.05 K/ul (4.8-10.8)
[2025-02-03 06:47] LABS: Anion Gap 8.0 (3-11); Blood Urea Nitrogen 27.0 mg/dl (6-23); Calcium 8.6 mg/dl (8.6-10.3); Carbon Dioxide 28.0 mmol/L (21-32); Chloride 102.0 mmol/L (98-107); Creatinine Clr Calc Pharmacy 28.9 ml/min; Glucose 105.0 mg/dl (70-99(Fasting)); Potassium 3.9 mmol/L (3.5-5.1); Sodium 138.0 mmol/L (136-145)
--- NOTE | 2025-02-03 07:51 | Fluoroscopy Report ---
FL hip LT 2-3V CLINICAL HISTORY: LEFT TROCHNAIL COMPARISON STUDY: X-ray study dated 02/02/2025 FINDINGS: 6 intraoperative fluoroscopic spot images are provided for interpretation. 84 seconds of fluoroscopic time was utilized. The Coumadin dose was 25.6 mGy Fluoroscopic spot images demonstrate placement of a left trochanteric nail fixating the intertrochant candy left hip fracture. The lesser trochanteric fragment is mildly displaced. IMPRESSION: Fluoroscopic spot images demonstrating internal fixation of an intertrochanteric left hi p fracture with a left trochanteric nail. ACT 112: Negative or not required by law. Electronically signed by: Carlos Nam M.D. 02/03/2025 7:50 AM
--- NOTE | 2025-02-03 08:33 | Orthopedic Progress Note ---
Date of Service February 03, 2025 Assessment & Plan (1) Hip fracture due to osteoporosis: Plan: IMPRESSION: POD #1 status post ORIF left hip fracture, doing well PLAN: Resume diet. WBAT with walker. OOB to chair. Continue pain control. DVT prophylaxis: TEDs 3 weeks, foot pumps while in hospital, ASA mg BID for 6 weeks. PT/OT. D/C planning. Dressing to be changed POD 2-3 to Silverlon type dressing. Continue care per primary service Admission and Anticipated Discharge Date Admission Date: February 02, 2025 Subjective Left hip pain Physical Exam Physical Exam: LLE: Sensation to light touch intact. Moving toes & ankle up and down. BCR <2 seconds. Calf is soft and nontender. Dressings are clean, dry, intact. Results & Data Vital Signs (Past 12 Hours) Vital Signs Temp Pulse Resp BP BP Pulse Ox O2 Del Method 02/03/25 07:20 36.7 C 73 18 123/84 95 Nasal Cannula 02/03/25 03:37 36.6 C 73 16 98/61 L 94 Nasal Cannula 02/02/25 23:36 36.8 C 77 16 96/61 L 95 Nasal Cannula O2 Flow Rate 02/03/25 07:20 02/03/25 03:37 2 02/02/25 23:36 2 Laboratory Results Laboratory Results WBC 8.05 K/ul (4.8-10.8) 02/03/25 05:55 RBC 3.07 M/uL (4.20-5.40) L 02/03/25 05:55 Hgb 9.4 g/dL (12.0-16.0) L D 02/03/25 05:55 Hct 27.8 % (37.0-47.0) L 02/03/25 05:55 MCV 90.6 fL (80.0-100.0) 02/03/25 05:55 MCH 30.6 pg (25.0-34.0) 02/03/25 05:55 MCHC 33.8 g/dL (32.0-36.0) 02/03/25 05:55 RDW Std Deviation 45.1 fL (36.4-46.3) 02/03/25 05:55 RDW Coeff of Abelardo 13.6 % (11.5-14.5) 02/03/25 05:55 Plt Count 146 K/uL (130-400) 02/03/25 05:55 MPV 10.2 fL (9.4-12.4) 02/03/25 05:55 Immature Gran % (Auto) 0.4 % 02/03/25 05:55 Neut % (Auto) 68.1 % 02/03/25 05:55 Lymph % (Auto) 22.4 % 02/03/25 05:55 [place] % (Auto) 8.0 % 02/03/25 05:55 Eos % (Auto) 0.9 % 02/03/25 05:55 Baso % (Auto) 0.2 % 02/03/25 05:55 Neut # (Auto) 5.49 K/uL (1.40-6.50) 02/03/25 05:55 Lymph # (Auto) 1.80 K/uL (1.20-3.40) 02/03/25 05:55 [place] # (Auto) 0.64 K/uL (0.11-0.59) H 02/03/25 05:55 Eos # (Auto) 0.07 K/uL (0.00-0.50) 02/03/25 05:55 Baso # (Auto) 0.02 K/uL (0.00-0.20) 02/03/25 05:55 Immature Gran # (Auto) 0.03 K/uL (0.01-0.20) 02/03/25 05:55 PT 11.5 Seconds (9.0-12.0) 02/02/25 07:15 INR 1.1 (0.9-1.1) 02/02/25 07:15 APTT 23 Seconds (21-31) 02/02/25 07:15 PTT Ratio 0.8 02/02/25 07:15 Sodium 138 mmol/L (136-145) 02/03/25 05:55 Potassium 3.9 mmol/L (3.5-5.1) D 02/03/25 05:55 Chloride 102 mmol/L (98-107) 02/03/25 05:55 Carbon Dioxide 28 mmol/L (21-32) 02/03/25 05:55 Anion Gap 8 (3-11) 02/03/25 05:55 BUN 27 mg/dl (6-23) H 02/03/25 05:55 Creatinine 1.22 mg/dl (0.6-1.2) H 02/03/25 05:55 Est Cr Clr Drug Dosing 28.9 ml/min 02/03/25 05:55 eGFR 43.22 02/03/25 05:55 BUN/Creatinine Ratio 22.1 (10-20) H 02/03/25 05:55 Glucose 105 mg/dl (70-99(Fasting)) H 02/03/25 05:55 Calcium 8.6 mg/dl (8.6-10.3) 02/03/25 05:55 Total Bilirubin 0.8 mg/dl (0.2-1.0) 02/02/25 07:15 AST 33 U/L (13-39) 02/02/25 07:15 ALT 30 U/L (7-52) 02/02/25 07:15 Alkaline Phosphatase 94 U/L (34-104) 02/02/25 07:15 Total Creatine Kinase 67 U/L (26-192) 02/02/25 07:15 Total Protein 6.8 gm/dl (6.0-8.3) 02/02/25 07:15 Albumin 4.2 gm/dl (3.4-5.0) 02/02/25 07:15 Globulin 2.6 gm/dl (2.5-4.0) 02/02/25 07:15 Albumin/Globulin Ratio 1.6 (0.9-2) 02/02/25 07:15 25-OH Vitamin D Total 38.0 ng/ml (30-100) 02/03/25 05:55 Urine Color Yellow 02/02/25 11:50 Urine Appearance Clear (Clear) 02/02/25 11:50 Urine pH 6.5 (4.5-7.5) 02/02/25 11:50 Ur Specific [place] 1.016 (1.000-1.030) 02/02/25 11:50 Urine Protein Negative (Negative) 02/02/25 11:50 Urine Glucose (UA) Negative (Negative) 02/02/25 11:50 Urine Ketones Negative (Negative) 02/02/25 11:50 Urine Blood Negative (Negative) 02/02/25 11:50 Urine Nitrite Negative (Negative) 02/02/25 11:50 Urine Bilirubin Negative (Negative) 02/02/25 11:50 Urine Urobilinogen Negative (Negative) 02/02/25 11:50 Ur Leukocyte Esterase Negative (Negative) 02/02/25 11:50 Urine Comment 02/02/25 11:[address] 02/02/25 07:28 EXAM: CT Head Without Intravenous Contrast INDICATION: Fall TECHNIQUE: Axial computed tomography images of the head/brain without intravenous contrast. Sagittal and/or coronal reformats are provided. Sagittal and coronal reformatted images were created and reviewed. This CT exam was performed using one or more of the following dose reduction techniques: automated exposure control, adjustment of the mA and/or kV according to patient size, and/or use of iterative reconstruction technique. COMPARISON: No relevant prior studies available. FINDINGS: Limitations: None. Brain and extra-axial spaces: There is age appropriate cortical atrophy and chronic ischemic periventricular white matter hypodensity. No acute infarct, hemorrhage or mass noted. 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 Bones/joints: No acute changes. Soft tissues: No acute abnormality noted. Vasculature: No acute abnormality noted. Sinuses: No layering fluid in the visualized portions of the paranasal sinuses. Mastoid air cells: No mastoid effusion. Orbits: No acute abnormality noted. IMPRESSION: Cerebral atrophy. No acute changes. ACT 112: N/A Electronically signed by Tessy Downey 02-02-2025 08:23 AM Chest X-Ray 02/02/25 07:53 EXAM: XR chest 1V portable CLINICAL HISTORY: Pre-op CXR TECHNIQUE: An X-ray image of the chest is obtained in AP projection. COMPARISON: The prior CT pulmonary angiography and CR dated 09/15/2022 were reviewed. FINDINGS: Pulmonary Parenchyma: Lungs are clear bilaterally. No evidence of consolidation, collapse, or focal opacities. No pulmonary nodules are identified. No evidence of pleural effusion or pleural thickening. Heart and Mediastinum: Mildly enlarged cardiac size (unchanged). Prominent aortic knob. No mediastinal widening or masses. No hilar or mediastinal lymphadenopathy. Bony Thorax: Bony thorax appears intact without fractures or deformities. Degenerative changes of the scanned spine. Degenerative changes of both acromioclavicular joints. Degenerative changes of both glenohumeral joints. Widened acromioclavicular distance bilaterally, which needs clinical correlation. Soft Tissues: Soft tissue calcifications are related to the right humeral head. EKG leads projected over the chest wall. IMPRESSION: 1. No acute cardiopulmonary abnormalities are identified. 2. Mild cardiomegaly (unchanged). Electronically signed by Todd Monsalve 02-02-2025 08:38 AM Hip X-Ray 02/02/25 11:35 FL hip LT 2-3V CLINICAL HISTORY: LEFT TROCHNAIL COMPARISON STUDY: X-ray study dated 02/02/2025 FINDINGS: 6 intraoperative fluoroscopic spot images are provided for interpretation. 84 seconds of fluoroscopic time was utilized. The Coumadin dose was 25.6 mGy Fluoroscopic spot images demonstrate placement of a left trochanteric nail fixating the intertrochanteric left hip fracture. The lesser trochanteric fragment is mildly displaced. IMPRESSION: Fluoroscopic spot images demonstrating internal fixation of an intertrochanteric left hip fracture with a left trochanteric nail. ACT 112: Negative or not required by law. Electronically signed by: Carlos Nam M.D. 02/03/2025 7:50 AM
[2025-02-03] MEDS: ATORVASTATIN 20 MG TAB PO SCH (08:36)
[2025-02-03] MEDS: METHOCARBAMOL 500 MG TABLET PO PRN (08:36)
[2025-02-03] MEDS: LOSARTAN POTASSIUM 50 MG TAB PO SCH (08:36)
[2025-02-03 09:49] LABS: Prealbumin 19.0 mg/dl (20-40)
--- NOTE | 2025-02-03 15:36 | Hospitalist Progress Note ---
Date of Service February 03, 2025 Assessment & Plan (1) Hip fracture due to osteoporosis: (2) Lumbar spinal stenosis: (3) Hypertension: (4) Hypokalemia: Plan 84 y/o admitted with left hip fracture # pathologic osteoporotic fracture of L hip, repaired 02/[address] Gibbs - pain control with scheduled APAP, continue usual gabapentin, morphine 1-2 mg IV q4h prn. add tramadol for pre-activity/PT - AM CBC x 2 monitor for anemia - Hg stable - check vitamin D - PT/OT rec rehab # hypokalemia - replaced and resolved # HTN - continue metoprolol, hold losartan for mild hypotension, hold HCTZ until good po postop # HLD - continue statin # Chronic LBP from LSS followed by pain clinic - noted. Cont gabapentin and prn methocarbamol # Hx recurrent UTI - none recently, takes cranberry, prefers to avoid catheter as much as possible. Using purewick # DVT ppx - SCDs, ASA bid postop per ortho x 6 weeks Admission and Anticipated Discharge Date Admission Date: February 02, 2025 Subjective Postoperative day one from left hip fracture repair. Stood with PT and OT, took 3-4 shuffling steps, and got into a chair with assistance. Pain 7/10 when standing and moving, no pain at rest. No SOB, abdominal pain, or nausea. Mild hypotension (BP 90/60). Afebrile, not tachycardic. Labs: creatinine 1.22 (increased from baseline 0.9-1), hemoglobin stable at 9.4. Continue scheduled acetaminophen and add tramadol 50 mg prior to PT/OT and mobility. Continue IV morphine for severe pain. No Vernon catheter. PT and OT recommend rehab; referrals will be made. Follow up with primary care for osteoporosis. Physical Exam Physical Exam: General Appearance: Normal. Vital signs: Reviewed past 24h vital signs in EMR, notable for: BP 90/60 mmHg. Afebrile, not tachycardic. HEENT: Within normal limits. Respiratory: No SOB. Cardiovascular: Regular rate and rhythm, no murmur. Gastrointestinal: No abdominal pain or nausea. soft nontender nondistended Genitourinary: does not have urinary catheter Lymphatic: Back, Musculoskeletal: Extremities: warm and well perfused, no LE edema. left hip incision clean dry and intact no deformity no ecchymosis or obvious hematoma Skin: Warm and dry, no rash. Neurological: AOx4, normal speech and mentation, gaines x 4. Psychiatric: Normal. Results & Data Results & Data Vital Signs (Past 12 Hours) Vital Signs Temp Pulse Resp BP BP Pulse Ox O2 Del Method 02/03/25 11:31 36.9 C 72 18 97/65 L 91 Room Air 02/03/25 07:20 36.7 C 73 18 123/84 95 Nasal Cannula 02/03/25 03:37 36.6 C 73 16 98/61 L 94 Nasal Cannula O2 Flow Rate 02/03/25 11:31 02/03/25 07:20 02/03/25 03:37 2 Laboratory Results - Laboratory Studies: - Creatinine: 1.22 (increased from baseline 0.9-1) - Hemoglobin: stable at 9.4 PG Care Time/CCT Total # of Minutes Spent Total Time Spent with Patient: Total time spent is greater than 50% in coordination of care (as documented) at patient's floor/unit and/or counseling patient: Coding Level of Care Code 44744 SUB INP/OBS CARE 235MIN Diagnoses Hip fracture due to osteoporosis M80.059A Lumbar spinal stenosis M48.061 Neurogenic claudication status: unspecified Hypertension I10 Hypokalemia E87.6 (2) Lumbar spinal stenosis Neurogenic claudication status: unspecified Qualified Code(s): M48.061 - Spinal stenosis, lumbar region without neurogenic claudication
[2025-02-04 06:21] LABS: Hematocrit (blood only) 27.0 % (37.0-47.0); Hemoglobin 9.1 g/dL (12.0-16.0); Mean Corpuscular Hemoglobin 30.2 pg (25.0-34.0); Mean Corpuscular Volume 89.7 fL (80.0-100.0); Platelet Count 144 K/uL (130-400); RDW Standard Deviation 45.0 fL (36.4-46.3); Red Blood Count 3.01 M/uL (4.20-5.40); White Blood Count 8.01 K/ul (4.8-10.8)
[2025-02-04 06:55] LABS: Anion Gap 7.0 (3-11); Blood Urea Nitrogen 22.0 mg/dl (6-23); Calcium 8.9 mg/dl (8.6-10.3); Carbon Dioxide 27.0 mmol/L (21-32); Chloride 102.0 mmol/L (98-107); Creatinine Clr Calc Pharmacy 37.5 ml/min; Glucose 110.0 mg/dl (70-99(Fasting)); Potassium 3.8 mmol/L (3.5-5.1); Sodium 136.0 mmol/L (136-145)
--- NOTE | 2025-02-04 09:46 | Orthopedic Progress Note ---
Date of Service February 04, 2025 Assessment & Plan (1) Hip fracture due to osteoporosis: Plan: IMPRESSION: POD #2 status post ORIF left hip fracture, doing well PLAN: Resume diet. WBAT with walker. OOB to chair. Continue pain control. DVT prophylaxis: TEDs 3 weeks, foot pumps while in hospital, ASA mg BID for 6 weeks. PT/OT. D/C planning. [facility]. Requests have been placed for [facility] with [facility] being a backup Dressing changed to Silverlon type dressing. Continue care per primary service Admission and Anticipated Discharge Date Admission Date: February 02, 2025 Subjective This 84-year-old female is day 2 status post left hip fracture ORIF with troch nail. Her daughter who is on her cellular phone serves as a waste water plant operator. Patient states that her pain is well-controlled. She is having difficulty participating fully with physical therapy. She was able to take very small alvin ffling type steps with her walker when therapy was working with her. Her daughter states that she spoke with the showcase trimmer this morning and was advised [facility] They are placing referrals for [facility] with [facility] being a backup. Currently the patient denies chest pain, shortness of breath, fever, chills, sweats, nausea, vomiting, diarrhea or difficulty voiding. She has no complaint of numbness or tingling in the left lower extremity. Review of Systems Review of Systems: All systems reviewed & are unremarkable except as noted in Subjective Physical Exam Physical Exam: Left hip: Tegaderm dressings were removed. Zipper line is in place over all incision sites. A Silverlon type dressing was placed over the incisions. There is no active bleeding or drainage. Patient is able to perform active straight leg raise test. She is able to actively dorsi and plantarflex her foot. She experiences slight discomfort in the hip with passive hip flexion to 80 degrees as well as with light passive internal and external hip rotation. She is neurovascularly intact in the left lower extremity. Results & Data Vital Signs (Past 12 Hours) Vital Signs Temp Pulse Resp BP Pulse Ox O2 Del Method 02/04/25 08:58 36.8 C 88 16 95/66 L 93 Room Air 02/03/25 23:00 37.2 C 78 18 115/76 94 Room Air Diagnostic Findings Laboratory Results WBC 8.01 K/ul (4.8-10.8) 12/02/25 05:58 RBC 3.01 M/uL (4.20-5.40) L 02/04/25 05:58 Hgb 9.1 g/dL (12.0-16.0) L 02/04/25 05:58 Hct 27.0 % (37.0-47.0) L 02/04/25 05:58 MCV 89.7 fL (80.0-100.0) 02/04/25 05:58 MCH 30.2 pg (25.0-34.0) 02/04/25 05:58 MCHC 33.7 g/dL (32.0-36.0) 02/04/25 05:58 RDW Std Deviation 45.0 fL (36.4-46.3) 02/04/25 05:58 RDW Coeff of Abelardo 13.7 % (11.5-14.5) 02/04/25 05:58 Plt Count 144 K/uL (130-400) 02/04/25 05:58 MPV 10.0 fL (9.4-12.4) 02/04/25 05:58 Immature Gran % (Auto) 0.4 % 02/03/25 05:55 Neut % (Auto) 68.1 % 02/03/25 05:55 Lymph % (Auto) 22.4 % 02/03/25 05:55 [place] % (Auto) 8.0 % 02/03/25 05:55 Eos % (Auto) 0.9 % 02/03/25 05:55 Baso % (Auto) 0.2 % 02/03/25 05:55 Neut # (Auto) 5.49 K/uL (1.40-6.50) 02/03/25 05:55 Lymph # (Auto) 1.80 K/uL (1.20-3.40) 02/03/25 05:55 [place] # (Auto) 0.64 K/uL (0.11-0.59) H 02/03/25 05:55 Eos # (Auto) 0.07 K/uL (0.00-0.50) 02/03/25 05:55 Baso # (Auto) 0.02 K/uL (0.00-0.20) 02/03/25 05:55 Immature Gran # (Auto) 0.03 K/uL (0.01-0.20) 02/03/25 05:55 PT 11.5 Seconds (9.0-12.0) 02/02/25 07:15 INR 1.1 (0.9-1.1) 02/02/25 07:15 APTT 23 Seconds (21-31) 02/02/25 07:15 PTT Ratio 0.8 02/02/25 07:15 Sodium 136 mmol/L (136-145) 02/04/25 05:58 Potassium 3.8 mmol/L (3.5-5.1) 02/04/25 05:58 Chloride 102 mmol/L (98-107) 02/04/25 05:58 Carbon Dioxide 27 mmol/L (21-32) 02/04/25 05:58 Anion Gap 7 (3-11) 02/04/25 05:58 BUN 22 mg/dl (6-23) 02/04/25 05:58 Creatinine 0.94 mg/dl (0.6-1.2) 02/04/25 05:58 Est Cr Clr Drug Dosing 37.5 ml/min 02/04/25 05:58 eGFR 59.09 02/04/25 05:58 BUN/Creatinine Ratio 23.4 (10-20) H 02/04/25 05:58 Glucose 110 mg/dl (70-99(Fasting)) H 02/04/25 05:58 Calcium 8.9 mg/dl (8.6-10.3) 02/04/25 05:58 Total Bilirubin 0.8 mg/dl (0.2-1.0) 02/02/25 07:15 AST 33 U/L (13-39) 02/02/25 07:15 ALT 30 U/L (7-52) 02/02/25 07:15 Alkaline Phosphatase 94 U/L (34-104) 02/02/25 07:15 Total Creatine Kinase 67 U/L (26-192) 02/02/25 07:15 Total Protein 6.8 gm/dl (6.0-8.3) 02/02/25 07:15 Albumin 4.2 gm/dl (3.4-5.0) 02/02/25 07:15 Globulin 2.6 gm/dl (2.5-4.0) 02/02/25 07:15 Albumin/Globulin Ratio 1.6 (0.9-2) 02/02/25 07:15 Prealbumin 19.0 mg/dl (20-40) L 02/03/25 05:55 25-OH Vitamin D Total 38.0 ng/ml (30-100) 02/03/25 05:55 Urine Color Yellow 02/02/25 11:50 Urine Appearance Clear (Clear) 02/02/25 11:50 Urine pH 6.5 (4.5-7.5) 02/02/25 11:50 Ur Specific [place] 1.016 (1.000-1.030) 02/02/25 11:50 Urine Protein Negative (Negative) 02/02/25 11:50 Urine Glucose (UA) Negative (Negative) 02/02/25 11:50 Urine Ketones Negative (Negative) 02/02/25 11:50 Urine Blood Negative (Negative) 02/02/25 11:50 Urine Nitrite Negative (Negative) 02/02/25 11:50 Urine Bilirubin Negative (Negative) 02/02/25 11:50 Urine Urobilinogen Negative (Negative) 02/02/25 11:50 Ur Leukocyte Esterase Negative (Negative) 02/02/25 11:50 Urine Comment 02/02/25 11:[address] 02/02/25 07:28 EXAM: CT Head Without Intravenous Contrast INDICATION: Fall TECHNIQUE: Axial computed tomography images of the head/brain without intravenous contrast. Sagittal and/or coronal reformats are provided. Sagittal and coronal reformatted images were created and reviewed. This CT exam was performed using one or more of the following dose reduction techniques: automated exposure control, adjustment of the mA and/or kV according to patient size, and/or use of iterative reconstruction technique. COMPARISON: No relevant prior studies available. FINDINGS: Limitations: None. Brain and extra-axial spaces: There is age appropriate cortical atrophy and chronic ischemic periventricular white matter hypodensity. No acute infarct, hemorrhage or mass noted. 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 Bones/joints: No acute changes. Soft tissues: No acute abnormality noted. Vasculature: No acute abnormality noted. Sinuses: No layering fluid in the visualized portions of the paranasal sinuses. Mastoid air cells: No mastoid effusion. Orbits: No acute abnormality noted. IMPRESSION: Cerebral atrophy. No acute changes. ACT 112: N/A Electronically signed by Tessy Downey 02-02-2025 08:23 AM Chest X-Ray 02/02/25 07:53 EXAM: XR chest 1V portable CLINICAL HISTORY: Pre-op CXR TECHNIQUE: An X-ray image of the chest is obtained in AP projection. COMPARISON: The prior CT pulmonary angiography and CR dated 09/15/2022 were reviewed. FINDINGS: Pulmonary Parenchyma: Lungs are clear bilaterally. No evidence of consolidation, collapse, or focal opacities. No pulmonary nodules are identified. No evidence of pleural effusion or pleural thickening. Heart and Mediastinum: Mildly enlarged cardiac size (unchanged). Prominent aortic knob. No mediastinal widening or masses. No hilar or mediastinal lymphadenopathy. Bony Thorax: Bony thorax appears intact without fractures or deformities. Degenerative changes of the scanned spine. Degenerative changes of both acromioclavicular joints. Degenerative changes of both glenohumeral joints. Widened acromioclavicular distance bilaterally, which needs clinical correlation. Soft Tissues: Soft tissue calcifications are related to the right humeral head. EKG leads projected over the chest wall. IMPRESSION: 1. No acute cardiopulmonary abnormalities are identified. 2. Mild cardiomegaly (unchanged). Electronically signed by Todd Monsalve 02-02-2025 08:38 AM Hip X-Ray 02/02/25 11:35 FL hip LT 2-3V CLINICAL HISTORY: LEFT TROCHNAIL COMPARISON STUDY: X-ray study dated 02/02/2025 FINDINGS: 6 intraoperative fluoroscopic spot images are provided for interpretation. 84 seconds of fluoroscopic time was utilized. The Coumadin dose was 25.6 mGy Fluoroscopic spot images demonstrate placement of a left trochanteric nail fixating the intertrochanteric left hip fracture. The lesser trochanteric fragment is mildly displaced. IMPRESSION: Fluoroscopic spot images demonstrating internal fixation of an intertrochanteric left hip fracture with a left trochanteric nail. ACT 112: Negative or not required by law. Electronically signed by: Carlos Nam M.D. 02/03/2025 7:50 AM
--- NOTE | 2025-02-04 18:23 | Hospitalist Progress Note ---
Date of Service February 04, 2025 Assessment & Plan (1) Hip fracture due to osteoporosis: (2) Lumbar spinal stenosis: (3) Hypertension: (4) Hypokalemia: Plan 84 y/o Farsi speaking woman admitted with left hip fracture # pathologic osteoporotic fracture of L hip, repaired 02/[address] Gibbs - pain control with scheduled APAP, continue usual gabapentin, tramadol as needed, morphine IV for severe pain-not using - acute blood loss anemia - per Ortho had a lot of hemorrhage around her fracture - hemoglobin baseline is 12, last 2 days 9.4, 9.1. Start oral iron supplement does not meet indication for transfusion - check vitamin D - normal at 38 - follow-up in primary care for osteoporosis treatment - PT/OT rec rehab # hypokalemia - replaced and resolved # HTN - continue metoprolol, continue holding losartan and HCTZ was mildly hypotensive that improved but remains normotensive # HLD - continue statin # Chronic LBP from LSS followed by pain clinic - noted. Cont gabapentin and prn methocarbamol # Hx recurrent UTI - none recently, takes cranberry, prefers to avoid catheter as much as possible. does not have Vernon # DVT ppx - SCDs, ASA bid postop per ortho x 6 weeks Admission and Anticipated Discharge Date Admission Date: February 02, 2025 Subjective left hip pain is controlled. doing well. She does not like the food her daughter is not in the room right now Physical Exam Physical Exam: General Appearance: Normal. Vital signs: Reviewed past 24h vital signs in EMR, unremarkable HEENT: Within normal limits. Respiratory: No SOB. clear to auscultation bilaterally no rhonchi rales or wheezes Cardiovascular: Regular rate and rhythm, no murmur. Gastrointestinal: soft nontender nondistended nabs Genitourinary: does not have urinary catheter Lymphatic: Back, Musculoskeletal: Extremities: warm and well perfused, no LE edema. left hip surgical wound dressed no strikethrough Skin: Warm and dry, no rash. Neurological: alert, verbal, gaines x 4. Psychiatric: Normal. Results & Data Results & Data Vital Signs (Past 12 Hours) Vital Signs Temp Pulse Resp BP Pulse Ox O2 Del Method 02/04/25 15:21 36.9 C 89 16 118/78 96 Room Air 02/04/25 08:58 36.8 C 88 16 95/66 L 93 Room Air 02/04/25 08:30 Room Air Laboratory Results CBC with white blood count 8 hemoglobin 9.1 BMP normal, creatinine 0.94 PG Care Time/CCT Total # of Minutes Spent Total Time Spent with Patient: Total time spent is greater than 50% in coordination of care (as documented) at patient's floor/unit and/or counseling patient: Coding Level of Care Code 74285 SUB INP/OBS CARE 2/35MIN Diagnoses Hip fracture due to osteoporosis M80.059A Lumbar spinal stenosis M48.061 Neurogenic claudication status: unspecified Hypertension I10 Hypokalemia E87.6 (2) Lumbar spinal stenosis Neurogenic claudication status: unspecified Qualified Code(s): M48.061 - Spinal stenosis, lumbar region without neurogenic claudication
[2025-02-05 06:34] LABS: Hematocrit (blood only) 27.1 % (37.0-47.0); Hemoglobin 9.1 g/dL (12.0-16.0); Immature Granulocytes # (auto) 0.06 K/uL (0.01-0.20); Immature Granulocytes % (auto) 0.7 %; Mean Corpuscular Hemoglobin 30.1 pg (25.0-34.0); Mean Corpuscular Volume 89.7 fL (80.0-100.0); Platelet Count 160 K/uL (130-400); RDW Standard Deviation 45.6 fL (36.4-46.3); Red Blood Count 3.02 M/uL (4.20-5.40); White Blood Count 8.25 K/ul (4.8-10.8)
[2025-02-05] MEDS: FERROUS SULFATE 325 MG TAB PO SCH (09:13)
[2025-02-05] MEDS: ONDANSETRON INJ 2 MG/ML 2 ML VIAL IV PRN (10:28)
--- NOTE | 2025-02-05 11:15 | Orthopedic Progress Note ---
Date of Service February 05, 2025 Assessment & Plan (1) Hip fracture due to osteoporosis: Plan: IMPRESSION: POD #3 status post ORIF left hip fracture, doing well PLAN: Resume diet. WBAT with walker. OOB to chair. Continue pain control. DVT prophylaxis: TEDs 3 weeks, foot pumps while in hospital, ASA mg BID for 6 weeks. PT/OT. D/C planning. [facility] privilege has been denied. Requests have been [facility] for [facility] a backup Dressing left in place, keep on until follow up appointment Orthopedically stable. Will sign off. Please reach out with questions or issues regarding her left hip. Dr. Gibbs present for today's visit. Continue care per primary service Admission and Anticipated Discharge Date Admission Date: February 02, 2025 Subjective Patient is resting in bed. Did physical therapy and Occupational Therapy today. History limited due to language barrier. Nursing reports that her daughter tells them that she was nauseated for the last few days and has had loss of appetite. She recently had some Zofran. No issues with the dressing. She has been taking Toradol for pain. Physical Exam Musculoskeletal: Exam of her left lower extremity: Hip dressings are clean, dry and intact. Mild edema throughout her left thigh. Skin is not erythematous or warm. Mild tenderness with palpation around the incision. No underlying fluctuance or evidence of seroma. Minimal edema to her left foot. Full active ankle range of motion and sensation grossly intact. Results & Data Vital Signs (Past 12 Hours) Vital Signs Temp Pulse Resp BP Pulse Ox O2 Del Method 02/05/25 07:17 37.3 C 89 19 125/79 94 Room Air 02/04/25 23:16 Room Air 02/04/25 23:15 37.2 C 82 18 115/76 93 Room Air Laboratory Results 02/05/25 Range/Units 06:09 WBC 8.25 (4.8-10.8) K/ul RBC 3.02 L (4.20-5.40) M/uL Hgb 9.1 L (12.0-16.0) g/dL Hct 27.1 L (37.0-47.0) % MCV 89.7 (80.0-100.0) fL MCH 30.1 (25.0-34.0) pg MCHC 33.6 (32.0-36.0) g/dL RDW Std Deviation 45.6 (36.4-46.3) fL RDW Coeff of Abelardo 13.9 (11.5-14.5) % Plt Count 160 (130-400) K/uL MPV 10.0 (9.4-12.4) fL Immature Gran % (Auto) 0.7 % Neut % (Auto) 57.7 % Lymph % (Auto) 23.8 % [place] % (Auto) 14.1 % Eos % (Auto) 3.3 % Baso % (Auto) 0.4 % Neut # (Auto) 4.77 (1.40-6.50) K/uL Lymph # (Auto) 1.96 (1.20-3.40) K/uL [place] # (Auto) 1.16 H (0.11-0.59) K/uL Eos # (Auto) 0.27 (0.00-0.50) K/uL Baso # (Auto) 0.03 (0.00-0.20) K/uL Immature Gran # (Auto) 0.06 (0.01-0.20) K/uL
--- NOTE | 2025-02-05 18:39 | Hospitalist Progress Note ---
Date of Service February 05, 2025 Assessment & Plan (1) Hip fracture due to osteoporosis: (2) Lumbar spinal stenosis: (3) Hypertension: (4) Hypokalemia: Plan 84 y/o Farsi speaking woman admitted with left hip fracture # pathologic osteoporotic fracture of L hip, repaired 02/[address] Gibbs - pain control with scheduled APAP, continue usual gabapentin, tramadol as needed - acute blood loss anemia - per Ortho had a lot of hemorrhage around her fracture - hemoglobin baseline is 12, now stable around 9 Start oral iron supplement does not meet indication for transfusion - check vitamin D - normal at 38 - follow-up in primary care for osteoporosis treatment - PT/OT rec rehab, CM following, P2P attempted today - not given determination insurance account specialist going to help # hypokalemia - replaced and resolved # HTN - continue metoprolol, continue holding losartan and HCTZ was mildly hypotensive that improved but remains normotensive # HLD - continue statin # Chronic LBP from LSS followed by pain clinic - noted. Cont gabapentin and prn methocarbamol # Hx recurrent UTI - none recently, takes cranberry, prefers to avoid catheter as much as possible. does not have Vernon DVT ppx - SCDs, ASA bid postop per ortho x 6 weeks Dispo: continued inpatient stay awaiting safe discharge dispo Admission and Anticipated Discharge Date Admission Date: February 02, 2025 Supervising Physician Co-Signing Physician Notes PA Supervision Note: I did not personally see or examine the patient today, but I verified all styles points of CHELA Pak's assessment and plan with the following exceptions/additions: None Subjective Patient seen lying in bed this evening daughter used as a boiler room helper via phone -pt declined formal boiler room helper pain controlled at rest, worse with ambulation has moved bowels appetite improved after zofran Review of Systems Review of Systems: All systems reviewed & are unremarkable except as noted in Subjective Physical Exam Physical Exam: General: NAD, vitals as above, lying in bed Pulm: breathing unlabored CV: well perfused extremities: moves all extremities. left hip dressing c/d/i Results & Data Results & Data Vital Signs (Past 12 Hours) Vital Signs Temp Pulse Resp BP Pulse Ox O2 Del Method 02/05/25 15:04 98.2 F 76 19 121/75 96 Room Air 02/05/25 07:17 99.1 F 89 19 125/79 94 Room Air Laboratory Results cbc and chemistry reviewed PG Care Time/CCT Total # of Minutes Spent Total Time Spent with Patient: Total time spent is greater than 50% in coordination of care (as documented) at patient's floor/unit and/or counseling patient: Coding Level of Care Code 23584 SUB INP/OBS CARE 2/35MIN Diagnoses Hip fracture due to osteoporosis M80.059A Lumbar spinal stenosis M48.061 Neurogenic claudication status: unspecified Hypertension I10 Hypokalemia E87.6 (2) Lumbar spinal stenosis Neurogenic claudication status: unspecified Qualified Code(s): M48.061 - Spinal stenosis, lumbar region without neurogenic claudication
[2025-02-06 06:17] LABS: Hematocrit (blood only) 28.6 % (37.0-47.0); Hemoglobin 9.5 g/dL (12.0-16.0); Immature Granulocytes # (auto) 0.14 K/uL (0.01-0.20); Immature Granulocytes % (auto) 1.5 %; Mean Corpuscular Hemoglobin 30.2 pg (25.0-34.0); Mean Corpuscular Volume 90.8 fL (80.0-100.0); Platelet Count 212 K/uL (130-400); RDW Standard Deviation 46.5 fL (36.4-46.3); Red Blood Count 3.15 M/uL (4.20-5.40); White Blood Count 9.60 K/ul (4.8-10.8)
--- NOTE | 2025-02-06 16:08 | Hospitalist Progress Note ---
Date of Service February 06, 2025 Assessment & Plan (1) Hip fracture due to osteoporosis: (2) Lumbar spinal stenosis: (3) Hypertension: (4) Hypokalemia: Plan This patient is an 84 y/o woman with history of HTN, HLD, chronic LBP, recurrent UTI, admitted with left hip fracture #Pathologic osteoporotic fracture of L hip/acute blood loss anemia- repaired 02/[address] Gibbs - pain control with scheduled APAP, continue usual gabapentin, tramadol as needed - acute blood loss anemia - per Ortho had a lot of hemorrhage around her fracture - hemoglobin baseline is 12, now stable around 9 Start oral iron supplement does not meet indication for transfusion - check vitamin D - normal at 38 - follow-up in primary care for osteoporosis treatment - PT/OT rec rehab, CM following, P2P denied - field insurance sales manager going to help # hypokalemia - replaced and resolved # HTN - continue metoprolol, continue holding losartan and HCTZ was mildly hypotensive that improved but remains normotensive # HLD - continue statin # Chronic LBP from LSS followed by pain clinic - noted. Cont gabapentin and prn methocarbamol # Hx recurrent UTI - none recently, takes cranberry, prefers to avoid catheter as much as possible. does not have Vernon DVT ppx - SCDs, ASA bid postop per ortho x 6 weeks Dispo: continued inpatient stay awaiting safe discharge dispo Admission and Anticipated Discharge Date Admission Date: February 02, 2025 Supervising Physician Co-Signing Physician Notes PA Supervision Note: I did not personally see or examine the patient today, but I verified all styles points of CHELA Pak's assessment and plan with the following exceptions/additions: None Subjective patient seen lying in bed, just finished working with OT. Reports pain in her left hip, appetite is improved No other acute concerns Review of Systems Review of Systems: All systems reviewed & are unremarkable except as noted in Subjective Physical Exam Physical Exam: General: NAD, vitals as above, lying in bed Pulm: breathing unlabored CV: well perfused extremities: moves all extremities. left hip dressing c/d/i Results & Data Results & Data Vital Signs (Past 12 Hours) Vital Signs Temp Pulse Resp BP Pulse Ox O2 Del Method 02/06/25 15:27 97.5 F L 69 16 122/79 93 Room Air 02/06/25 07:05 98.2 F 76 16 133/83 91 Room Air Laboratory Results CBC reviewed PG Care Time/CCT Total # of Minutes Spent Total Time Spent with Patient: Total time spent is greater than 50% in coordination of care (as documented) at patient's floor/unit and/or counseling patient: Coding Level of Care Code 59255 SUB INP/OBS CARE 03/30MIN Diagnoses Hip fracture due to osteoporosis M80.059A Lumbar spinal stenosis M48.061 Neurogenic claudication status: unspecified Hypertension I10 Hypokalemia E87.6 (2) Lumbar spinal stenosis Neurogenic claudication status: unspecified Qualified Code(s): M48.061 - Spinal stenosis, lumbar region without neurogenic claudication
--- NOTE | 2025-02-07 11:07 | Hospitalist Progress Note ---
Date of Service February 07, 2025 Assessment & Plan (1) Hip fracture due to osteoporosis: (2) Lumbar spinal stenosis: (3) Hypertension: (4) Hypokalemia: Plan This patient is an 84 y/o woman with history of HTN, HLD, chronic LBP, recurrent UTI, admitted with left hip fracture #Pathologic osteoporotic fracture of L hip/acute blood loss anemia- repaired 02/[address] Gibbs - pain control with scheduled APAP, continue usual gabapentin, tramadol as needed - acute blood loss anemia - per Ortho had a lot of hemorrhage around her fracture - hemoglobin baseline is 12, now stable around 9. Start oral iron supplement does not meet indication for transfusion - check vitamin D - normal at 38 - follow-up in primary care for osteoporosis treatment - PT/OT rec rehab, CM following, P2P denied - insurance loss assessor going to help # hypokalemia - replaced and resolved # HTN - continue metoprolol, continue holding losartan and HCTZ was mildly hypotensive that improved but remains normotensive # HLD - continue statin # Chronic LBP from LSS followed by pain clinic - noted. Cont gabapentin and prn methocarbamol # Hx recurrent UTI - none recently, takes cranberry, prefers to avoid catheter as much as possible. does not have Vernon DVT ppx - SCDs, ASA bid postop per ortho x 6 weeks Dispo: continued inpatient stay awaiting safe discharge dispo Lexapro and atorvastatin changed to PM per pt and daughter's request. Admission and Anticipated Discharge Date Admission Date: February 02, 2025 Supervising Physician Co-Signing Physician Notes PA Supervision Note: I did not personally see or examine the patient today, but I verified all styles points of CHELA Gutierrez's assessment and plan with the following exceptions/additions: None Subjective Patient is a pleasant 84 yo F who was admitted with left hip fracture and underwent ORIF on 02/02. She has had no post op complications. Her pain is adequately controlled. She denies chest pain or dyspnea. Last BM was yesterday. Daughter is requesting that her lexapro and atorvastatin get changed to PM when she normally takes them. She is still awaiting rehab bed. Review of Systems Review of Systems: All systems reviewed and are unremarkable except as noted in HPI and below. Denies fever, chills, fatigue, headache, nasal congestion, sore throat, cough, chest pain, shortness of breath, palpitations, orthopnea, PND, abdominal pain, n/v/d, constipation, dysuria, hematuria, frequency, back pain, easy bruising or bleeding, skin lesions or rashes. Physical Exam Physical Exam: GENERAL: 84 yo well nourished elderly F. A&O x3. No distress. LUNGS: Clear to auscultation bilaterally. No accessory muscle use. No W/R/R. CARDIOVASCULAR: Regular rate and rhythm. +murmur ABDOMEN: Soft, non-tender and non-distended. BS normoactive x 4 quad. EXTREMITIES: L hip incision is dressed. Dressing is dry with surrounding ecchymosis. No calf tenderness. Peripheral pulses +2/4. Results & Data Results & Data Vital Signs (Past 12 Hours) Vital Signs Temp Pulse Resp BP Pulse Ox O2 Del Method 02/07/25 07:49 36.7 C 79 16 110/74 96 Room Air 02/06/25 23:22 36.3 C L 79 14 109/71 92 Room Air PG Care Time/CCT Total # of Minutes Spent Total Time Spent with Patient: Total time spent is greater than 50% in coordination of care (as documented) at patient's floor/unit and/or counseling patient: 26 minutes Coding Level of Care Code 69606 SUB INP/OBS CARE 03/30MIN Diagnoses Hip fracture due to osteoporosis M80.059A Lumbar spinal stenosis M48.061 Neurogenic claudication status: unspecified Hypertension I10 Hypokalemia E87.6 (2) Lumbar spinal stenosis Neurogenic claudication status: unspecified Qualified Code(s): M48.061 - Spinal stenosis, lumbar region without neurogenic claudication
--- NOTE | 2025-02-08 10:03 | Hospitalist Progress Note ---
Date of Service February 08, 2025 Assessment & Plan (1) Hip fracture due to osteoporosis: Plan: -POD #6 status post ORIF left hip fracture - pain control with scheduled APAP, continue usual gabapentin, tramadol as needed - PT -awaiting rehab placement (2) Lumbar spinal stenosis: Plan: Cont gabapentin and prn methocarbamol (3) Hypertension: Plan: -continue metoprolol, continue holding losartan and HCTZ was mildly hypotensive (4) Hypokalemia: Plan: replaced and resolved Plan This patient is an 84 y/o woman with history of HTN, HLD, chronic LBP, recurrent UTI, admitted with left hip fracture DVT ppx - SCDs, ASA bid postop per ortho x 6 weeks Dispo: PT recommending acute rehab, awaiting placement L Admission and Anticipated Discharge Date Admission Date: February 02, 2025 Subjective No events overnight. Pt appears to be complaining of left hip pain. Review of Systems Review of Systems: CONST: Negative for fever, body aches and chills. HENT: Negative for neck pain/stiffness, headache, congestion, sore throat, swelling. EYES: Negative for discharge/pain or vision changes. RESP: Negative for cough/hemoptysis and shortness of breath. CV: Negative chest pain, difficulty breathing, palpitations. ABD: Negative pain, nausea, vomiting. : Negative increase frequency, dysuria, blood in urine or stool. MUSC: Negative for muscle aches, edema. SKIN: Negative rash, lesions/sores. NEURO: Negative headache, dizziness, weakness. Physical Exam Physical Exam: GENERAL APPEARANCE NAD, activity normal for age, well developed/ well nourished, no cyanosis, pallor, or diaphoresis. EYES lids/conjunctiva normal. EARS/NOSE/THROAT Mucous membranes moist, nares normal, lips/teeth normal uvula midline without oral pharyngeal erythema, exudate or swelling TMs normal bilaterally. No lymphangitis/lymphedema. HEAD/NECK normocephalic atraumatic, no facial trauma, neck is supple. RESPIRATORY respiratory effort normal, speaks in full sentences, no tripod position, no accessory muscle use. Lungs clear to auscultation without rhonchi, wheezes, rales CARDIAC Regular rate and rhythm, no edema. ABDOMINAL Soft, ND/NT. No evidence of fluid wave. No pulsatile masses on exam, rebound tenderness, Jackson sign or pain over Mcburney's point. MUSCLES/EXTREMITIES No abnormal range of motion, no swelling. SKIN Warm, pink and dry. No rashes, dermatoses, petechiae or lesions. NEUROLOGICAL Speech is clear and appropriate. Normal level of consciousness. Gait and coordination are normal. 5/5 strength in all extremities. PSYCH Normal mood and affect. Judgement/competence is appropriate Results & Data Results & Data Vital Signs (Past 12 Hours) Vital Signs Temp Pulse Resp BP Pulse Ox O2 Del Method 02/08/25 07:20 37 C 86 16 126/87 94 Room Air 02/08/25 00:15 36.6 C 75 20 126/77 94 Room Air PG Care Time/CCT Total # of Minutes Spent Total Time Spent with Patient: Total time spent is greater than 50% in coordination of care (as documented) at patient's floor/unit and/or counseling patient: Coding Level of Care Code 80947 SUB INP/OBS CARE 2/35MIN Diagnoses Hip fracture due to osteoporosis M80.059A Lumbar spinal stenosis M48.061 Neurogenic claudication status: unspecified Hypertension I10 Hypokalemia E87.6 (2) Lumbar spinal stenosis Neurogenic claudication status: unspecified Qualified Code(s): M48.061 - Spinal stenosis, lumbar region without neurogenic claudication
[2025-02-08] MEDS: POLYETHYLENE (MIRALAX) 17 GM PACK PO PRN (14:46)
[2025-02-08] MEDS: ATORVASTATIN 20 MG TAB PO SCH (20:30)
[2025-02-08] MEDS: ESCITALOPRAM OXALATE 10 MG TAB PO SCH (20:30)
[2025-02-09 08:36] LABS: Hematocrit (blood only) 27.5 % (37.0-47.0); Hemoglobin 9.3 g/dL (12.0-16.0); Mean Corpuscular Hemoglobin 30.5 pg (25.0-34.0); Mean Corpuscular Volume 90.2 fL (80.0-100.0); Platelet Count 297 K/uL (130-400); RDW Standard Deviation 44.6 fL (36.4-46.3); Red Blood Count 3.05 M/uL (4.20-5.40); White Blood Count 7.80 K/ul (4.8-10.8)
[2025-02-09 08:57] LABS: Anion Gap 8.0 (3-11); Blood Urea Nitrogen 19.0 mg/dl (6-23); Calcium 8.9 mg/dl (8.6-10.3); Carbon Dioxide 27.0 mmol/L (21-32); Chloride 102.0 mmol/L (98-107); Creatinine Clr Calc Pharmacy 45.2 ml/min; Glucose 129.0 mg/dl (70-99(Fasting)); Potassium 4.0 mmol/L (3.5-5.1); Sodium 137.0 mmol/L (136-145)
--- NOTE | 2025-02-09 10:08 | Hospitalist Progress Note ---
Date of Service February 09, 2025 Assessment & Plan (1) Hip fracture due to osteoporosis: Plan: -POD #7 status post ORIF left hip fracture - pain control with scheduled APAP, continue usual gabapentin, tramadol as needed - PT -awaiting rehab placement (2) Lumbar spinal stenosis: Plan: Cont gabapentin and prn methocarbamol (3) Hypertension: Plan: -continue metoprolol, continue holding losartan and HCTZ was mildly hypotensive (4) Hypokalemia: Plan: replaced and resolved Plan This patient is an 84 y/o woman with history of HTN, HLD, chronic LBP, recurrent UTI, admitted with left hip fracture DVT ppx - SCDs, ASA bid postop per ortho x 6 weeks Dispo: PT recommending acute rehab, awaiting placement Admission and Anticipated Discharge Date Admission Date: February 02, 2025 Subjective No events overnight. Pt appears to be still complaining of left hip pain. Review of Systems Review of Systems: CONST: Negative for fever, body aches and chills. HENT: Negative for neck pain/stiffness, headache, congestion, sore throat, swelling. EYES: Negative for discharge/pain or vision changes. RESP: Negative for cough/hemoptysis and shortness of breath. CV: Negative chest pain, difficulty breathing, palpitations. ABD: Negative pain, nausea, vomiting. : Negative increase frequency, dysuria, blood in urine or stool. MUSC: Negative for muscle aches, edema. SKIN: Negative rash, lesions/sores. NEURO: Negative headache, dizziness, weakness. Physical Exam Physical Exam: GENERAL APPEARANCE NAD, activity normal for age, well developed/ well nourished, no cyanosis, pallor, or diaphoresis. EYES lids/conjunctiva normal. EARS/NOSE/THROAT Mucous membranes moist, nares normal, lips/teeth normal uvula midline without oral pharyngeal erythema, exudate or swelling TMs normal bilaterally. No lymphangitis/lymphedema. HEAD/NECK normocephalic atraumatic, no facial trauma, neck is supple. RESPIRATORY respiratory effort normal, speaks in full sentences, no tripod position, no accessory muscle use. Lungs clear to auscultation without rhonchi, wheezes, rales CARDIAC Regular rate and rhythm, no edema. ABDOMINAL Soft, ND/NT. No evidence of fluid wave. No pulsatile masses on exam, rebound tenderness, Jackson sign or pain over Mcburney's point. MUSCLES/EXTREMITIES No abnormal range of motion, no swelling. SKIN Warm, pink and dry. No rashes, dermatoses, petechiae or lesions. NEUROLOGICAL Speech is clear and appropriate. Normal level of consciousness. Gait and coordination are normal. 5/5 strength in all extremities. PSYCH Normal mood and affect. Judgement/competence is appropriate Results & Data Results & Data Vital Signs (Past 12 Hours) Vital Signs Temp Pulse Resp BP Pulse Ox O2 Del Method 02/09/25 07:02 36.7 C 68 16 136/79 93 Room Air 02/08/25 23:08 36.9 C 79 16 109/67 92 Room Air PG Care Time/CCT Total # of Minutes Spent Total Time Spent with Patient: Total time spent is greater than 50% in coordination of care (as documented) at patient's floor/unit and/or counseling patient: Coding Level of Care Code 51072 SUB INP/OBS CARE 2/35MIN Diagnoses Hip fracture due to osteoporosis M80.059A Lumbar spinal stenosis M48.061 Neurogenic claudication status: unspecified Hypertension I10 Hypokalemia E87.6 (2) Lumbar spinal stenosis Neurogenic claudication status: unspecified Qualified Code(s): M48.061 - Spinal stenosis, lumbar region without neurogenic claudication
--- NOTE | 2025-02-10 12:50 | Hospitalist Progress Note ---
"Date of Service February 10, 2025 Assessment & Plan (1) Hip fracture due to osteoporosis: (2) Lumbar spinal stenosis: (3) Hypertension: (4) Hypokalemia: Plan This patient is an 84 y/o woman with history of HTN, HLD, chronic LBP, recurrent UTI, admitted with left hip fracture on 02/02/2025. #Pathologic osteoporotic fracture of L hip/acute blood loss anemia repaired 02/[address] Gibbs pain control with scheduled APAP, Tramadol prn for breakthrough pain. Oxycodone added 02/10 in the event of severe pain. acute blood loss anemia - per Ortho had a lot of hemorrhage around her fracture - hemoglobin baseline is 12, now stable around 9. Continue oral iron supplement vitamin D - normal at 38 follow-up in primary care for osteoporosis treatment PT/OT rec rehab, CM following, P2P denied - [employer] insurance going to help #Muscle Aches | Chills reporting muscle aches, poor appetite & chills on 02/10. Afebrile Check CBC/CMP, WBC has been stable. UA negative for infection; respiratory Biofire pending Poor appetite may be from underlying nausea, zofran prn Per nursing, patient may have over exerted herself during PT on 02/08, monitor for signs of improvement. # hypokalemia - resolved K now stable at 4.0 as of 02/09. # HTN continue metoprolol continue holding losartan and HCTZ was mildly hypotensive that improved but remains normotensive, may not require on discharge. # HLD - continue statin # Chronic LBP from LSS followed by pain clinic - noted. Cont gabapentin and prn methocarbamol # Hx recurrent UTI - none recently, takes cranberry, prefers to avoid catheter as much as possible. does not have Vernon DVT ppx - SCDs, ASA bid postop per ortho x 6 weeks Dispo: continued inpatient stay awaiting safe discharge dispo Admission and Anticipated Discharge Date Admission Date: February 02, 2025 Supervising Physician Co-Signing Physician Notes The patient was not seen by me. The chart was reviewed. Case discussed with CHELA Dobson. Agree with assessment and plan Subjective The patient was seen & examined this afternoon with her daughter present. Patient reports muscle aches & chills today. Reports left hip pain worsened today. Also reports poor appetite. Physical Exam Physical Exam: General: NAD, VS: BP 111/71; P69; R18; T37.0C Resp: normal respiratory effort Extremities: no edema Neuro: A&O x3 Skin: intact, no lesions noted Results & Data Results & Data Vital Signs (Past 12 Hours) Vital Signs Temp Pulse Pulse Resp BP Pulse Ox O2 Del Method 02/10/25 12:29 37.2 C 73 16 106/68 95 Room Air 02/10/25 07:43 36.8 C 72 18 120/86 96 Room Air 02/10/25 06:57 36.5 C 79 16 128/86 97 Room Air PG Care Time/CCT Total # of Minutes Spent Total Time Spent with Patient: Total time spent is greater than 50% in coordination of care (as documented) at patient's floor/unit and/or counseling patient: Coding Level of Care Code 27625 SUB INP/OBS CARE 2/35MIN Diagnoses Hip fracture due to osteoporosis M80.059A Lumbar spinal stenosis M48.061 Neurogenic claudication status: unspecified Hypertension I10 Hypokalemia E87.6 (2) Lumbar spinal stenosis Neurogenic claudication status: unspecified Qualified Code(s): M48.061 - Spinal stenosis, lumbar region without neurogenic claudication"
[2025-02-10 15:39] LABS: Appearance Urine Clear (Clear); Glucose Urine UA Negative (Negative)
[2025-02-10 16:37] LABS: Chlamydia pneumoniae PCR Not Detected (NotDetected); Coronavirus 229E PCR Not Detected (NotDetected); Coronavirus CoV-2 (COVID19)PCR Not Detected (NotDetected); Coronavirus HKU1 PCR Not Detected (NotDetected); Coronavirus NL63 PCR Not Detected (NotDetected); Coronavirus OC43PCR Not Detected (NotDetected); Human Metapneumovirus PCR Not Detected (NotDetected); Parainfluenza Virus 1 PCR Not Detected (NotDetected); Parainfluenza Virus 2 PCR Not Detected (NotDetected); Parainfluenza Virus 3 PCR Not Detected (NotDetected); Parainfluenza Virus 4 PCR Not Detected (NotDetected); Respiratory Syncytial VirusPCR Not Detected (NotDetected); Rhinovirus/Enterovirus PCR Not Detected (NotDetected)
[2025-02-10] MEDS: HYDROCORTISONE 2.5% CR 30 GM TUBE EXT SCH (22:25)
[2025-02-10 23:31] VITALS: PULSE 70
--- NOTE | 2025-02-11 00:40 | Ultrasound Report ---
Exam(s): US VENOUS LEFT LOWER EXTREMITY EXAM: US Duplex Left Lower Extremity Veins CLINICAL HISTORY: Reason for exam: warm, swelling w/ cir > 3cm compare to other side. OTHER: Other Notes: Swelling in LLE. Hip surgery 1 week ago. Age indeterminate thrombus detected within left CFV (appears to be mostly along castor) and appears to be within prox GSV. Left SFV distal not well visualized and unable to see compression due to swelling, however appears patent. Remainder of LLE appears WNL. *limited exam due to swelling. TECHNIQUE: Real-time duplex ultrasound scan of the left lower extremity veins integrating B-mode two-dimensional vascular structure, Doppler spectral analysis, color flow Doppler imaging and compression. COMPARISON: No relevant prior studies available. FINDINGS: Deep veins: Lack of compression of the left common femoral vein secondary to chronic appearing thrombus within same. Superficial veins: Unremarkable. No thrombus in the visualized great saphenous vein. Soft tissues: No acute findings. No popliteal cyst. IMPRESSION: Chronic left common femoral vein DVT Electronically signed by: Darwin Khan MD 02/11/25 00:39 AM
[2025-02-11] MEDS ORDERED: Heparin IV Adult Wt-Based Low-Dose *NO* INITIAL Bolus Protocol IV STA (01:06)
[2025-02-11] MEDS: HEPARIN 25000 UNIT/500 ML D5W 25,000 UNITS/500 ML BAG IV SCH (01:48)
[2025-02-11 01:57] LABS: Hematocrit (blood only) 25.9 % (37.0-47.0); Hemoglobin 8.5 g/dL (12.0-16.0); Immature Granulocytes # (auto) 0.11 K/uL (0.01-0.20); Immature Granulocytes % (auto) 1.3 %; Mean Corpuscular Hemoglobin 29.8 pg (25.0-34.0); Mean Corpuscular Volume 90.9 fL (80.0-100.0); Platelet Count 314 K/uL (130-400); RDW Standard Deviation 46.4 fL (36.4-46.3); Red Blood Count 2.85 M/uL (4.20-5.40); White Blood Count 8.45 K/ul (4.8-10.8)
[2025-02-11 02:26] LABS: INR 1.1 (0.9-1.1); Partial Thromboplastin Time 24 Seconds (21-31); Prothrombin Time 11.4 Seconds (9.0-12.0)
[2025-02-11 06:57] VITALS: BP 135/81; RESP 16; TEMP 98.2; O2SAT 95
[2025-02-11 08:01] LABS: Hematocrit (blood only) 29.4 % (37.0-47.0); Hemoglobin 9.7 g/dL (12.0-16.0); Immature Granulocytes # (auto) 0.18 K/uL (0.01-0.20); Immature Granulocytes % (auto) 1.9 %; Mean Corpuscular Hemoglobin 30.1 pg (25.0-34.0); Mean Corpuscular Volume 91.3 fL (80.0-100.0); Platelet Count 389 K/uL (130-400); RDW Standard Deviation 46.0 fL (36.4-46.3); Red Blood Count 3.22 M/uL (4.20-5.40); White Blood Count 9.30 K/ul (4.8-10.8)
[2025-02-11 08:23] LABS: Alanine Aminotransferase 19.0 U/L (7-52); Albumin Globulin Ratio 1.3 (0.9-2); Albumin Level 3.6 gm/dl (3.4-5.0); Alkaline Phosphatase 249.0 U/L (34-104); Anion Gap 10.0 (3-11); Bilirubin,Total 0.8 mg/dl (0.2-1.0); Blood Urea Nitrogen 17.0 mg/dl (6-23); Calcium 9.4 mg/dl (8.6-10.3); Carbon Dioxide 26.0 mmol/L (21-32); Chloride 101.0 mmol/L (98-107); Creatinine Clr Calc Pharmacy 41.5 ml/min; Globulin 2.8 gm/dl (2.5-4.0); Glucose 105.0 mg/dl (70-99(Fasting)); Potassium 4.0 mmol/L (3.5-5.1); Sodium 137.0 mmol/L (136-145); Total Protein 6.4 gm/dl (6.0-8.3)
[2025-02-11 08:26] LABS: ANTI-Xa, UFH(UnfractionatedHep 0.10 IU/ml (0.3-0.7)
--- NOTE | 2025-02-11 09:35 | Ultrasound Report ---
US venous doppler LE RT HISTORY: 84 years-old Female RLE edema/pain COMPARISON: None TECHNIQUE: Multiple real-time sonographic images of the right lower extremity deep venous structures were obtained assessing grayscale appearance, color and spectral flow. FINDINGS: Normal flow, compressibility, phasicity and augmentation. Subcutaneous edema is noted. IMPRESSION: No sonographic evidence of deep venous thrombosis. ACT 112: Negative or not required by law. The above report was generated using voice recognition software. It may contain grammatical, syntax o r spelling errors. Electronically signed by: Haris Solis M.D. 02/11/2025 9:34 AM
[2025-02-11] MEDS: APIXABAN 5 MG TABLET PO SCH (10:11)
--- NOTE | 2025-02-11 11:37 | Hospitalist Progress Note ---
Date of Service February 11, 2025 Assessment & Plan (1) Hip fracture due to osteoporosis: (2) Lumbar spinal stenosis: (3) Hypertension: (4) Hypokalemia: Plan This patient is an 84 y/o woman with history of HTN, HLD, chronic LBP, recurrent UTI, admitted with left hip fracture on 02/02/2025. #Pathologic osteoporotic fracture of L hip/acute blood loss anemia repaired 02/[address] Gibbs pain control with scheduled APAP, Tramadol prn for breakthrough pain. Oxycodone added 02/10 in the event of severe pain. acute blood loss anemia - per Ortho had a lot of hemorrhage around her fracture - hemoglobin baseline is 12, now stable around 9. Continue oral iron supplement vitamin D - normal at 38 follow-up in primary care for osteoporosis treatment PT/OT rec rehab, CM following, P2P denied - risk and insurance consultant going to help #Chronic Left femoral vein DVT. w/ L leg pain + edema on 02/10, doppler of LLE ordered 02/10 & chronic femoral vein DVT noted. R leg doppler negative. s/p heparin drip but given chronic clot, discontinued & started Eliquis 02/11 Dae stockings applied Resume HCTZ in AM to help w/ fluid retention in LE given she is on this at home. # hypokalemia - resolved K now stable at 4.0 as of 02/11. # HTN continue metoprolol, resume HCTZ Could consider discontinuing Losartan on discharge given stable pressure. # HLD - continue statin # Chronic LBP from LSS followed by pain clinic - noted. Cont gabapentin and prn methocarbamol # Hx recurrent UTI - none recently, takes cranberry, prefers to avoid catheter as much as possible. does not have Vernon DVT ppx - SCDs, Eliquis Code: full [facility] accepted patient for SNF rehab, awaiting authorization from insurance. Admission and Anticipated Discharge Date Admission Date: February 02, 2025 Supervising Physician Co-Signing Physician Notes The patient was not seen by me. The chart was reviewed. Case discussed with CHELA Dobson. Agree with assessment and plan Subjective The patient was seen & examined with her daughter at bedside this morning. The patient reports to be feeling okay today. Does have some LE edema/pain likely secondary to fluid retention. Discussed discharge planning w/ daughter. Physical Exam Physical Exam: General: NAD, VS: BP 135/81; P70; R16; T36.8C Resp: normal respiratory effort Extremities: Moves all extremities, LE b/l edema L > R. tender in calf region of b/l LE. L hip incision without exudate or erythema. appears intact. Neuro: A&O x3 Skin: intact, no lesions noted Results & Data Results & Data Vital Signs (Past 12 Hours) Vital Signs Temp Pulse Resp BP Pulse Ox O2 Del Method 02/11/25 06:56 36.8 C 70 16 135/81 95 Room Air PG Care Time/CCT Total # of Minutes Spent Total Time Spent with Patient: Total time spent is greater than 50% in coordination of care (as documented) at patient's floor/unit and/or counseling patient: Coding Level of Care Code 57291 SUB INP/OBS CARE 2/35MIN Diagnoses Hip fracture due to osteoporosis M80.059A Lumbar spinal stenosis M48.061 Neurogenic claudication status: unspecified Hypertension I10 Hypokalemia E87.6 (2) Lumbar spinal stenosis Neurogenic claudication status: unspecified Qualified Code(s): M48.061 - Spinal stenosis, lumbar region without neurogenic claudication
--- NOTE | 2025-02-11 14:58 | Discharge Summary ---
Discharge Summary Date of Service February 11, 2025 Principal Dx & Hospital Course #1 = Principal Diagnosis (1) Hip fracture due to osteoporosis: (2) Lumbar spinal stenosis: (3) Hypertension: (4) Hypokalemia: Plan This patient is an 84 y/o woman with history of HTN, HLD, chronic LBP, recurrent UTI, admitted with left hip fracture on 02/02/2025. #Pathologic osteoporotic fracture of L hip/acute blood loss anemia repaired 02/[address] Gibbs pain control with scheduled APAP, Tramadol prn for breakthrough pain. Oxycodone added 02/10 in the event of severe pain. acute blood loss anemia - per Ortho had a lot of hemorrhage around her fracture - hemoglobin baseline is 12, now stable around 9. Continue oral iron supplement vitamin D - normal at 38 follow-up in primary care for osteoporosis treatment #Chronic Left femoral vein DVT. w/ L leg pain + edema on 02/10, doppler of LLE ordered 02/10 & chronic femoral vein DVT noted. R leg doppler negative. s/p heparin drip but given chronic clot, discontinued & started Eliquis 02/11 Antolin stockings applied # hypokalemia - resolved K now stable at 4.0 as of 02/11. # HTN continue metoprolol, resume HCTZ Discontinue Losartan on discharge given stable pressure. # HLD - continue statin # Chronic LBP from LSS followed by pain clinic - noted. Cont gabapentin and prn methocarbamol # Hx recurrent UTI - none recently, takes cranberry, prefers to avoid catheter as much as possible. does not have [place] Patient went to [facility] for rehab on 02/11 Admission HPI Per Admitting Provider 84 y/o with HTN and lumbar spinal stenosis followed by pain management. Fell yesterday and did hit head but remained ambulatory. No LOC. Was on commode and had diarrhea this am. After that was unable to stand and ambulate, severe L hip pain. Evaluated in ED and found to have left hip fracture. She is German speaking. Attempted to use video/phone cab starter but unable because of technical problem. Her daughter at bedside interpreted and provided additional history. She has been living with her daughter since compression fracture earlier this year. Usually lives in her own apartment alone and was just preparing to go back there within a week or so. Yesterday she slipped on some water on the floor and fell backward, landing on left hip/buttock. She did hit her head on floor but no LOC and denies any neck or head pain. She was able to get up and ambulate yesterday though did have left hip pain. Today early this AM she had severe left hip pain and was unable to get up and stand/walk so came in to ED. Right now she has severe left hip pain with any movement. When still it does not hurt very badly. No chest pain or shortness of breath. Very hungry, no nausea or abdominal pain. Had a loose stool this AM. No injury to other extremities. After compression fracture used a walker, but improved and recently only using a cane. Never has chest pain or shortness of breath with ambulation. No cardiac history and no history of pulmonary disease. Discharge Exam General: NAD, VS: BP 135/81; P70; R16; T36.8C Resp: normal respiratory effort Neuro: A&O x3 Discharge Plan Discharge Items Patient Disposition: Transfer Long Term Fac Reason For Visit: LEFT HIP FRACTURE Discharge Diagnosis: left intertrochanteric hip fracture Condition on Discharge: Fair Activity: Per Instructions section Weightbearing: Left weightbearing Weightbearing Comment: with walker Non-emergency contact: Surgeon Call non-emergency contact if: you have any medication questions, your symptoms worsen, your pain is not controlled, your temperature is above 101, your wound has increased redness and your wound has increased drainage Follow-up/Referrals: Loly Levi MD [Primary Care Provider] - Carol Armendariz PA-C [Physician Java Development Manager] - 02/17/25 2:45 pm Diet: Regular Addtl Attending Provider Instructions: Ms. Perea, You were recently hospitalized secondary to a fall and had a hip fracture. You underwent a surgery with Dr. Gibbs on 02/02/2025. You are now going to rehab to get stronger. Medications: Your medication list has been reviewed and reconciled upon discharge to ensure accuracy and continuity of care. An updated list of all your medications is included with your hospital discharge paperwork. Please review this list closely, and make note of any changes. Please continue to take Tylenol 650mg every 6 hours for pain. For breakthrough pain, please use Tramadol 50mg every 4 hours as needed. For your DVT that was found in your left leg, please take 2 tabs of Eliquis twice daily for 7 days followed by 1 tab twice daily. Please take iron every other day to help with increasing your hemoglobin Take your medications as instructed; do not skip a dose of your medicines. Make sure all of your doctors know every medicine you are taking (including over-the- counter medicines, vitamins, and supplements). Call your primary care provider before taking any new medicines (including over- the-counter medicines, vitamins, and supplements), because some of these may interact with your current medications, or may make your symptoms worse. Tell your primary care provider if you cannot afford your medications. Activity: You can do normal everyday activities as your body allows. Take rest breaks if you feel tired. Do not overexert. Stop activity if you have pain, shortness of breath or feel dizzy. Follow-up appointments: Make an appointment with your primary care physician within one week of discharge. A copy of this summary will be sent to them. Every time you see your primary care physician, or any other doctor, bring your medication list, and a list of questions. orthopedic instructions are listed below from your surgeon. CONTACT YOUR PRIMARY CARE PROVIDER if you experience any of the following: Shortness of breath or difficulty breathing Fevers or chills Feeling tired with normal activity or experiencing dizziness or fainting Difficulty following your treatment plan, or difficulty taking medications CALL 911 OR GO TO THE EMERGENCY DEPARTMENT if you experience any of the following: Severe abdominal pain or nausea/vomiting Severe chest pain, or chest pain that radiates (moves) to your jaw or arm Sudden, severe shortness of breath or difficulty breathing Thank you for allowing us to participate in your care. Addtl Director Of Student Aid Provider Instructions: Orthopedic Instructions: - You may weight-bear as tolerated on your left lower extremity with the assistance of a walker. Use your walker at all times. - Ice to left hip as needed for pain or swelling. - No hip precautions are necessary. May do range of motion of your left hip, knee and ankle as tolerated. - Elevate left lower extremity above your heart to relieve pain or swelling. - ANTOLIN stockings (knee-high) x 4 to 6 weeks after surgery. May wear during the day and remove at night for laundering comfort. - Continue regular diet. - Pain control as needed. - Okay to shower with the Silverlon dressing in place. Keep the Silverlon dr lidia in place until your first postoperative follow-up appointment. - Keep Zip Line in place until follow up appointment - this will be under the Silverlon dressing. - Call [phone] with any increased pain, swelling, fevers, chills, drainage from incision, questions, concerns, need to reschedule or confirm appointment. - Follow-up as scheduled in approximately 2 weeks after surgery. Pending Studies at Discharge: No Stand-Alone Forms: My [facility] Skilled Items Patient informed of condition?: Yes DNR: No Discharge Level of Care: Acute rehab Communicable Disease: No Discharge Prognosis: Improving Lines: None Urinary Catheter: No Medications and DC Order Prescriptions: New acetaminophen 325 mg Tablet 650 mg PO Q6H Qty: 90 0RF tramadol 50 mg Tablet 50 mg PO Q4H PRN (Reason: pain) Qty: 20 0RF ferrous sulfate 325 mg (65 mg iron) Tablet,Delayed Release (Dr/Ec) 325 mg PO Q48H Qty: 30 0RF Eliquis 5 mg tablet 5 mg PO BID Qty: 90 0RF Rx Instructions: Please take two tabs by mouth twice daily for 7 days followed by 1 tab by mouth twice daily Continued atorvastatin 20 mg tablet 20 mg PO DAILY Qty: 90 3RF hydrochlorothiazide 50 mg tablet 50 mg PO DAILY Qty: 90 3RF omeprazole 40 mg capsule,delayed release(DR/EC) 40 mg PO DAILY Qty: 90 3RF escitalopram oxalate 10 mg tablet 10 mg PO DAILY Qty: 90 3RF metoprolol succinate 25 mg tablet extended release 24 hr 25 mg PO DAILY Qty: 90 3RF gabapentin 300 mg capsule 300 mg PO BID Qty: 60 1RF methocarbamol 500 mg Tablet 500 mg PO TID PRN (Reason: spasms) Qty: 30 0RF Held aspirin [Enteric Coated Aspirin] 81 mg tablet,delayed release (DR/EC) 81 mg PO DAILY Hold Instructions: Resume on 02/28/25. on eliquis Discontinued losartan 50 mg tablet 50 mg PO DAILY Qty: 90 1RF diclofenac sodium 50 mg tablet,delayed release (DR/EC) 50 mg PO BID Qty: 60 1RF Rx Instructions: with Food gabapentin 100 mg capsule 100 mg PO BID Qty: 60 0RF No Action (DME) Ultra-Light Rollator Misc See Rx Instructions .Route Qty: 1 0RF Rx Instructions: As directed Discharge Orders: Discharge Order (Routine); Ordered 02/11/25 Ordered By: Nayely Khan Admission Data Admit Date/Time: 02/02/25 09:38 Attending Provider: Fox Hess Admit Provider: Edie Butler Primary Care Provider: Loly Levi V. Other Providers: Edie Butler; Frank Gibbs; [facility] Other Interventions: Discharge Summary Assessment (RN) Last Done: 02/11/25 15:15 Hospital Stay Data Consultations 02/02/25 09:28 ED Decision to Admit Stat 02/02/25 09:34 Consult Orthopedic Surgery Stat Procedures Performed Operation Date: 02/02/25 13:00 Actual Procedures p Open Reduction Internal Fixation Left Hip Fracture(Left) - Frank Gibbs MD Diagnostic Imagining Performed 02/02/25 07:28 CT head/brain wo con Stat 02/02/25 11:35 FL hip LT 2-3V Routine 02/10/25 22:04 US venous doppler LE LT Urgent 02/11/25 07:48 US venous doppler LE RT Urgent Pending Results Patient Have Any Pending Studies at Discharge: No Discharge Instructions Given to Patient (Per Discharging Provider) Ms. Perea, You were recently hospitalized secondary to a fall and had a hip fracture. You underwent a surgery with Dr. Gibbs on 02/02/2025. You are now going to rehab to get stronger. Medications: Your medication list has been reviewed and reconciled upon discharge to ensure accuracy and continuity of care. An updated list of all your medications is included with your hospital discharge paperwork. Please review this list closely, and make note of any changes. Please continue to take Tylenol 650mg every 6 hours for pain. For breakthrough pain, please use Tramadol 50mg every 4 hours as needed. For your DVT that was found in your left leg, please take 2 tabs of Eliquis twice daily for 7 days followed by 1 tab twice daily. Please take iron every other day to help with increasing your hemoglobin Take your medications as instructed; do not skip a dose of your medicines. Make sure all of your doctors know every medicine you are taking (including dzli-idl-ydgxtxa medicines, vitamins, and supplements). Call your primary care provider before taking any new medicines (including over- the-counter medicines, vitamins, and supplements), because some of these may interact with your current medications, or may make your symptoms worse. Tell your primary care provider if you cannot afford your medications. Activity: You can do normal everyday activities as your body allows. Take rest breaks if y ou feel tired. Do not overexert. Stop activity if you have pain, shortness of breath or feel dizzy. Follow-up appointments: Make an appointment with your primary care physician within one week of dis charge. A copy of this summary will be sent to them. Every time you see your primary care physician, or any other doctor, bring your medication list, and a list of questions. orthopedic instructions are listed below from your surgeon. CONTACT YOUR PRIMARY CARE PROVIDER if you experience any of the following: Shortness of breath or difficulty breathing Fevers or chills Feeling tired with normal activity or experiencing dizziness or fainting Difficulty following your treatment plan, or difficulty taking medications CALL 911 OR GO TO THE EMERGENCY DEPARTMENT if you experience any of the following: Severe abdominal pain or nausea/vomiting Severe chest pain, or chest pain that radiates (moves) to your jaw or arm Sudden, severe shortness of breath or difficulty breathing Thank you for allowing us to participate in your care. Supervising Physician Co-Signing Physician Notes The patient was not seen by me. The chart was reviewed. Case discussed with CHELA Dobson. Agree with assessment and plan Total Time Total Time Spent Total Time Spent (In Minutes): 45 Total Time Includes: Examination of the Patient, Discharge Planning and Medication Reconciliation Coding Level of Care Code None Diagnoses Hip fracture due to osteoporosis M80.059A Lumbar spinal stenosis M48.061 Neurogenic claudication status: unspecified Hypertension I10 Hypokalemia E87.6
[2025-02-12] MEDS ORDERED: hydroCHLOROthiazide 25 MG TAB PO SCH (09:00)
--- NOTE | 2025-02-13 10:27 | Electrocardiogram Report ---
Test Reason : Blood Pressure : */* mmHG Vent. Rate : 75 BPM Atrial Rate : 75 BPM P-R Int : 200 ms QRS Dur : 88 ms QT Int : 400 ms P-R-T Axes : 24 -32 41 degrees QTcB Int : 446 ms Sinus rhythm with marked sinus arrhythmia with Premature atrial complexes Left axis deviation Abnormal ECG When compared with ECG of 02-Feb-2025 07:35, Premature atrial complexes are now Present Confirmed by Todd Patterson ([id number]) on 02/13/2025 10:27:01 AM Referred By: REFERRED SELF Confirmed By: Todd Patterson
== END 2025-02-11 16:15 | DRG 481 ==
LOC: ED 07:06 → SUATTDRO 09:38 → 3E 09:38